=== PATIENT | female | born 1980 | race Caucasian/White ===

== ENCOUNTER 2019-04-10 08:39 | Emergency (ER) | payer MEDICAID, SELFPAY ==
[2019-04-10 08:48] VITALS: BP 117/92; PULSE 81; RESP 18; TEMP 36.7; O2SAT 100
--- NOTE | 2019-04-10 09:10 | W.ED.GENAD ---
Discharge Plan Disposition Patient Disposition: HOME Condition: Fair Discharge Details Chief Complaint: RespSymp Clinical Impression: Acute streptococcal pharyngitis Primary Care Provider: Madelin Beatty V ED Provider: Jewels Atkinson Home Meds and New Rx's Prescriptions: New amoxicillin 500 mg capsule 500 mg PO BID Qty: 20 RF: 0 fluconazole 150 mg tablet 150 mg PO ONCE Qty: 2 RF: 0 Continued sertraline [Zoloft] 100 mg Tablet 100 mg PO DAILY RF: 0 Discharge Instructions Instructions: Pharyngitis (ED) Additional Instructions: Encourage hydration. Tylenol and ibuprofen as needed for discomfort. May use viscous lidocaine as prescribed to help with symptomatic management. Replace your toothbrush as discussed. Please take amoxicillin as prescribed. Even if symptoms improve, please take the entire course If you develop symptoms of yeast infection, please take fluconazole as prescribed home coordinator will reach out to you in regard to follow-up with primary care provider. If you develop inability stay hydrated, increased swelling, shortness of breath, difficulty breathing or other new/worsening symptoms please seek care urgently once again. Stand Alone Forms: Work Release Medical Decision Making Patient is a 38-year-old female presenting today for violation sore throat. She reports that last week she began having symptoms of nasal congestion, sinus pressure and mild cough. States that few days ago sore throat began. Reports that this made worse with eating. States initially she had fevers but these have since resolved. She denies any GI upset. Patient is status post tubal ligation. On exam, findings are suggestive of Streptococcus pharyngitis. However, her history is not consistent with this. Plan to obtain POC strep testing. Rapid strep testing is positive. Discussed these findings with the patient. We discussed her/benefits of treatment and she prefers treatment route. Patient will be placed on amoxicillin. She does report that she frequently gets yeast infections with antibiotics, will also prescribe fluconazole to begin if she has symptoms. We discussed new/worsening symptoms that should prompt urgent evaluation once again. Advise follow-up with primary care as she does not have one I have asked her tire care manager help facilitate this. All of her questions and concerns were addressed and she is in agreement this plan. HPI General Mode of arrival: ambulatory. Date/Time Provider Initiated Documentation: 04/10/19 08:49. Limitations to Documentation: no limitations. Information obtained by: patient, family and RN notes reviewed. History of Present Illness 38 year old F presents to the emergency department with the chief complaint of sore throat, described as moderate, with intensity rated at 5. Quality is described as burning, Patient reports no radiation. Patient started experiencing this day(s) and it has been constant. No relieving factors improve symptom(s), No exacerbating factors reported . Patient notes cough (mild) and fever/chills (reprots fevers a few days ago, since resolved); denies chest pain, diaphoresis, headaches, loss of appetite, nausea/vomiting, rash and shortness of breath. Patient did receive the following treatments prior to arrival, none Related Data Home Medications Medication Instructions Recorded Confirmed amoxicillin 500 mg PO BID #20 cap 04/10/19 fluconazole 150 mg PO ONCE #2 tab 04/10/19 sertraline [Zoloft] 100 mg PO DAILY 04/10/19 04/10/19 Previous Rx's Medication Instructions Recorded amoxicillin 500 mg PO BID #20 cap 04/10/19 fluconazole 150 mg PO ONCE #2 tab 04/10/19 Allergies Allergy/AdvReac Type Severity Reaction Status Date / Time No Known Allergies Allergy Unverified 04/10/19 08:46 General Stated Complaint: RespSymp MARCEL: 4 Review of Systems Constitutional Reports as per HPI, Denies chills, Reports fever(s), Denies headache(s) and Denies poor appetite Eyes Reports as per HPI, Denies eye discharge and Denies irritation ENT Reports as per HPI, Denies ear discharge, Denies otalgia, Denies headache(s), Reports sinus pain, Reports sinus pressure, Reports sore throat, Denies throat swelling and Denies tongue swelling Cardiovascular Reports as per HPI, Denies chest pain, Denies dyspnea and Denies dyspnea on exertion Respiratory Reports as per HPI, Denies hemoptysis, Denies dyspnea and Denies dyspnea on exertion Gastrointestinal Reports as per HPI, Denies abdominal pain, Denies change in bowel habits, Denies nausea and Denies vomiting Integumentary/Breasts Reports as per HPI and Denies rash Neurologic Reports as per HPI and Denies headache(s) Allergic/Immunologic Denies throat swelling and Denies tongue swelling PFS Social History Smoking/Tobacco Use Status: Never Alcohol Intake: current Alcohol Intake frequency: holidays/special occasions only Drug use: Never Substance use type: does not use Do you feel safe at home: Yes Do you feel safe in your relationship?: Yes Exam Const General: cooperative, healthy appearing, comfortable, no acute distress, well developed and well groomed Nutritional Appearance: well nourished and overweight Orientation: alert and awake [facility] Head: normal to inspection, normocephalic and atraumatic Ears: hearing grossly normal bilaterally, external ears normal and TM's normal bilaterally General nose exam: external nose normal and nares normal Face and sinus: normal facial exam, sinuses nontender and face symmetric Mouth: oral mucosae normal, lip normal, tongue normal, oropharynx normal and moist mucous membranes Teeth and gingiva: dentition normal Throat: uvula midline and abnormal tonsil bilaterally erythema, exudates and hypertrophy 2+ Eyes General: appearance normal, both eyes and all related structures Neck Neck: normal visual inspection, full ROM, no lymphadenopathy and no meningeal signs Resp Effort & Inspection: normal respiratory effort, able to speak in complete sentences and no respiratory distress Auscultation: clear to auscultation bilaterally, no rales, no rhonchi and no wheezes Cardio Rate: regular rate Rhythm: regular rhythm Heart Sounds: S1 normal and S2 normal Skin General skin exam: no rashes or lesions noted Neuro General: alert and awake Cognition: normal cognition Speech: speech normal Gait: normal gait Psych Appearance: grossly normal and well kempt Mental Status: mental status grossly normal Speech and Movement: speech and movement normal Course Vital Signs Temperature 36.7 C 04/10/19 08:48 Pulse 81 04/10/19 08:48 Respiratory Rate 18 04/10/19 08:48 Blood Pressure 117/92 H 04/10/19 08:48 Pulse Oximetry 100 04/10/19 08:48 Temperature 36.7 C 04/10/19 08:48 Temperature Source Tympanic 04/10/19 08:48 Pulse 81 04/10/19 08:48 Respiratory Rate 18 04/10/19 08:48 Respiratory Effort Non-Labored 04/10/19 09:00 Respiratory Depth Normal 04/10/19 08:54 Blood Pressure 117/92 H 04/10/19 08:48 Blood Pressure Position Sitting 04/10/19 08:48 Pulse Oximetry 100 04/10/19 08:48 Oxygen Delivery Method Room Air 04/10/19 08:48 Oxygen Flow Rate 0 04/10/19 08:48 Pain Level 5 04/10/19 08:48 Lab/Test Results Lab/Test Results: POC Strep Test-ZACHARIAH(Rapid) Start: 04/10/19 08:58 Freq: .Rapid Strep Test Status: Active Protocol: Document 04/10/19 09:03 SGL (Rec: 04/10/19 09:03 [facility] [place] [id number]) Strep test-ZACHARIAH(Rapid)-POC POC-Strep test-ZACHARIAH (Rapid) Positive POC-Strep test-ZACHARIAH (Rapid) Positive
--- NOTE | 2019-04-10 09:20 | ED.GENADUL_ITS ---
Discharge Plan Disposition Patient Disposition: HOME Condition: Fair Discharge Details Chief Complaint: RespSymp Clinical Impression: Acute streptococcal pharyngitis Primary Care Provider: Madelin Beatty V ED Provider: Jewels Atkinson Home Meds and New Rx's Prescriptions: New amoxicillin 500 mg capsule 500 mg PO BID Qty: 20 RF: 0 fluconazole 150 mg tablet 150 mg PO ONCE Qty: 2 RF: 0 Continued sertraline [Zoloft] 100 mg Tablet 100 mg PO DAILY RF: 0 Discharge Instructions Instructions: Pharyngitis (ED) Additional Instructions: Encourage hydration. Tylenol and ibuprofen as needed for discomfort. May use viscous lidocaine as prescribed to help with symptomatic management. Replace your toothbrush as discussed. Please take amoxicillin as prescribed. Even if symptoms improve, please take the entire course If you develop symptoms of yeast infection, please take fluconazole as prescribed plan coordinator will reach out to you in regard to follow-up with primary care provider. If you develop inability stay hydrated, increased swelling, shortness of breath, difficulty breathing or other new/worsening symptoms please seek care urgently once again. Stand Alone Forms: Work Release Medical Decision Making Patient is a 38-year-old female presenting today for violation sore throat. She reports that last week she began having symptoms of nasal congestion, sinus pressure and mild cough. States that few days ago sore throat began. Reports that this made worse with eating. States initially she had fevers but these have since resolved. She denies any GI upset. Patient is status post tubal ligation. On exam, findings are suggestive of Streptococcus pharyngitis. However, her history is not consistent with this. Plan to obtain POC strep testing. Rapid strep testing is positive. Discussed these findings with the patient. We discussed her/benefits of treatment and she prefers treatment route. Patient will be placed on amoxicillin. She does report that she frequently gets yeast infections with antibiotics, will also prescribe fluconazole to begin if she has symptoms. We discussed new/worsening symptoms that should prompt urgent evaluation once again. Advise follow-up with primary care as she does not have one I have asked her care process manager help facilitate this. All of her questions and concerns were addressed and she is in agreement this plan. HPI General Mode of arrival: ambulatory . Date/Time Provider Initiated Documentation: 04/10/19 08:49 . Limitations to Documentation: no limitations . Information obtained by: patient, family and RN notes reviewed . History of Present Illness 38 year old F presents to the emergency department with the chief complaint of sore throat, described as moderate, with intensity rated at 5. Quality is described as burning, Patient reports no radiation. Patient started experiencing this day(s) and it has been constant. No relieving factors improve symptom(s), No exacerbating factors reported . Patient notes cough (mild) and fever/chills (reprots fevers a few days ago, since resolved); denies chest pain, diaphoresis, headaches, loss of appetite, nausea/vomiting, rash and shortness of breath. Patient did receive the following treatments prior to arrival, none Related Data Home Medications Medication Instructions Recorded Confirmed amoxicillin 500 mg PO BID #20 cap 04/10/19 fluconazole 150 mg PO ONCE #2 tab 04/10/19 sertraline [Zoloft] 100 mg PO DAILY 04/10/19 04/10/19 Previous Rx's Medication Instructions Recorded amoxicillin 500 mg PO BID #20 cap 04/10/19 fluconazole 150 mg PO ONCE #2 tab 04/10/19 Allergies Allergy/AdvReac Type Severity Reaction Status Date / Time No Known Allergies Allergy Unverified 04/10/19 08:46 General Stated Complaint: RespSymp MARCEL: 4 Review of Systems Constitutional Reports as per HPI, Denies chills, Reports fever(s), Denies headache(s) and Denies poor appetite Eyes Reports as per HPI, Denies eye discharge and Denies irritation ENT Reports as per HPI, Denies ear discharge, Denies otalgia, Denies headache(s), Reports sinus pain, Reports sinus pressure, Reports sore throat, Denies throat swelling and Denies tongue swelling Cardiovascular Reports as per HPI, Denies chest pain, Denies dyspnea and Denies dyspnea on exertion Respiratory Reports as per HPI, Denies hemoptysis, Denies dyspnea and Denies dyspnea on exertion Gastrointestinal Reports as per HPI, Denies abdominal pain, Denies change in bowel habits, Denies nausea and Denies vomiting Integumentary/Breasts Reports as per HPI and Denies rash Neurologic Reports as per HPI and Denies headache(s) Allergic/Immunologic Denies throat swelling and Denies tongue swelling PFS Social History Smoking/Tobacco Use Status: Never Alcohol Intake: current Alcohol Intake frequency: holidays/special occasions only Drug use: Never Substance use type: does not use Do you feel safe at home: Yes Do you feel safe in your relationship?: Yes Exam Const General: cooperative, healthy appearing, comfortable, no acute distress, well developed and well groomed Nutritional Appearance: well nourished and overweight Orientation: alert and awake [facility] Head: normal to inspection, normocephalic and atraumatic Ears: hearing grossly normal bilaterally, external ears normal and TM's normal bilaterally General nose exam: external nose normal and nares normal Face and sinus: normal facial exam, sinuses nontender and face symmetric Mouth: oral mucosae normal, lip normal, tongue normal, oropharynx normal and moist mucous membranes Teeth and gingiva: dentition normal Throat: uvula midline and abnormal tonsil bilaterally erythema, exudates and hypertrophy 2+ Eyes General: appearance normal, both eyes and all related structures Neck Neck: normal visual inspection, full ROM, no lymphadenopathy and no meningeal signs Resp Effort & Inspection: normal respiratory effort, able to speak in complete sentences and no respiratory distress Auscultation: clear to auscultation bilaterally, no rales, no rhonchi and no wheezes Cardio Rate: regular rate Rhythm: regular rhythm Heart Sounds: S1 normal and S2 normal Skin General skin exam: no rashes or lesions noted Neuro General: alert and awake Cognition: normal cognition Speech: speech normal Gait: normal gait Psych Appearance: grossly normal and well kempt Mental Status: mental status grossly normal Speech and Movement: speech and movement normal Course Vital Signs Temperature 36.7 C 04/10/19 08:48 Pulse 81 04/10/19 08:48 Respiratory Rate 18 04/10/19 08:48 Blood Pressure 117/92 H 04/10/19 08:48 Pulse Oximetry 100 04/10/19 08:48 Temperature 36.7 C 04/10/19 08:48 Temperature Source Tympanic 04/10/19 08:48 Pulse 81 04/10/19 08:48 Respiratory Rate 18 04/10/19 08:48 Respiratory Effort Non-Labored 04/10/19 09:00 Respiratory Depth Normal 04/10/19 08:54 Blood Pressure 117/92 H 04/10/19 08:48 Blood Pressure Position Sitting 04/10/19 08:48 Pulse Oximetry 100 04/10/19 08:48 Oxygen Delivery Method Room Air 04/10/19 08:48 Oxygen Flow Rate 0 04/10/19 08:48 Pain Level 5 04/10/19 08:48 Lab/Test Results Lab/Test Results: POC Strep Test-ZACHARIAH(Rapid) Start: 04/10/19 08:58 Freq: .Rapid Strep Test Status: Active Protocol: Document 04/10/19 09:03 SGL (Rec: 04/10/19 09:03 [facility] [id number]) Strep test-ZACHARIAH(Rapid)-POC POC-Strep test-ZACHARIAH (Rapid) Positive POC-Strep test-ZACHARIAH (Rapid) Positive
[2019-04-10 09:29] VITALS: BP 117/92; PULSE 81; RESP 18; TEMP 36.7; O2SAT 100
--- NOTE | 2019-04-10 14:01 | NUR.NOTE ---
Nursing Note: Referral faxed to [facility] for follow up. Russell Barcenas is engineer/conductor for telephone call. Janette Vásquez.
== END 2019-04-10 09:21 | disposition home or self-care (01) ==
LOC: ER 09:27
PROVIDERS: Emergency Provider Physician Assistant; PCP Family Medicine
DX: J02.0 Streptococcal pharyngitis (principal)
CPT/HCPCS: 87880; 99283

== ENCOUNTER 2019-05-21 14:28 | Outpatient (REF) | payer MEDICAID, SELFPAY ==
[2019-05-21 21:12] LABS: Abs Immature Grans 0.01 k/cumm (0.0-0.09); Absolute Basophil Count 0.05 k/cumm (0.0-0.2); Absolute Eosinophil Count 0.21 k/cumm (0.0-0.7); Absolute Lymphocyte Count 2.41 k/cumm (1.2-3.4); Absolute Monocyte Count 0.52 k/cumm (0.11-0.7); Absolute Neutrophil Count 4.78 k/cumm (1.2-6.7); Basophils % 0.6; Eosinophils % 2.6; Immature Grans % 0.1; Lymphocytes % 30.2; Mean Corp. HGB Concentration 32.4 g/dL (32.0-36.0); Mean Corpuscular Hemoglobin 27.9 pg (27.0-33.0); Mean Platelet Volume 11.9 fL (8.0-11.0); Monocytes % 6.5; Platelet Count 275 x1000/uL (130-400); RBC Distribution Width 13.3 % (11.7-14.6); White Blood Cell Count 7.98 k/cumm (4.4-10.8)
[2019-05-21 21:32] LABS: Hemoglobin A1C 6.2 % (4.5-6.2)
[2019-05-21 21:49] LABS: TSH 2.45 uIU/mL (0.36-3.74)
[2019-05-21 23:03] LABS: Vitamin D 25 Total 29.3 ng/ml (30-100)
== END 2019-05-21 14:48 ==
LOC: NCHCN 14:28
PROVIDERS: PCP Family Medicine; Visit Provider Nurse Practitioner Family
DX: R53.83 Other fatigue (principal); R51 Headache; F41.9 Anxiety disorder, unspecified; F43.23 Adjustment disorder with mixed anxiety and depressed mood; Z13.1 Encounter for screening for diabetes mellitus
CPT/HCPCS: 82306; 83036; 84443; 85025

== ENCOUNTER 2019-07-26 12:52 | Outpatient (REF) | payer MEDICAID, SELFPAY ==
[2019-07-30 14:08] LABS: Chlamydia Result Negative; GC Result Negative; Specimen Description URINE
== END 2019-07-26 13:12 ==
LOC: NCHCN 12:52
PROVIDERS: PCP Family Medicine; Visit Provider Nurse Practitioner
DX: Z11.3 Encounter for screening for infections with a predominantly sexual mode of transmission (principal)
CPT/HCPCS: 87491; 87591

== ENCOUNTER 2020-07-07 10:40 | Emergency (ER) | payer MEDICAID, SELFPAY ==
[2020-07-07 10:44] VITALS: BP 130/90; PULSE 90; RESP 16; TEMP 36; O2SAT 98
--- NOTE | 2020-07-07 11:49 | ED.GENADUL_ITS ---
Discharge Plan Disposition Patient Disposition: HOME Condition: Stable Discharge Details Chief Complaint: Orthopedic Clinical Impression: Sprain of left knee Primary Care Provider: Madelin Beatty V ED Provider: Rere Griffith Home Meds and New Rx's Prescriptions: No Action sertraline [Zoloft] 100 mg Tablet 100 mg PO DAILY RF: 0 amoxicillin 500 mg capsule 500 mg PO BID Qty: 20 RF: 0 fluconazole 150 mg tablet 150 mg PO ONCE Qty: 2 RF: 0 Discharge Instructions Instructions: Knee Sprain (ED) Additional Instructions: Follow up with primary care provider in 3-5 days. Return to ED sooner if any worsening or concerns. Increase oral fluids. Please take Tylenol or Ibuprofen with food every 4-6 hours as needed for pain and swelling. Rest, ice, compression, elevation. Wear knee immobilizer and use crutches for comfort weightbearing as tolerated. Follow-up with Ortho in 1 to 2 weeks as needed. Stand Alone Forms: Work Release Referrals: Madelin Beatty MD [Primary Care Provider] - Bro Peña MD [ [facility] STAFF PHYSICIAN] - Discharge Data Discharge Date/Time-TO BE ENTERED AT DEPARTURE: 07/07/20 14:11 Medical Decision Making 39-year-old obese female presents to the ER with left knee tenderness x2 days. She states that increased pain with weightbearing, feels as if her knee is going to hyperextend. She does note some popping. She did take 400 mg of ibuprofen prior to arrival. This is somewhat helped her pain. She has no obvious deformity, erythema, or swelling. Imaging protocol: XR Left knee. Views: 3 views. COMPARISON: No relevant prior studies available. FINDINGS: Bones/joints: Minor joint effusion. No fractures. No focal bone lesions. No arthritic degeneration. Articular surfaces are smooth. No erosions. Soft tissues: No soft tissue swelling. IMPRESSION: Minor joint effusion. Bones and soft tissues are otherwise unremarkable. Joint spaces preserved. Thank you for allowing us to participate in the care of your patient. Dictated and Authenticated by: Stanislaw Dong MD Patient given knee immobilizer and crutches instructed to follow-up with Ortho in 1 to 2 weeks if continued pain. Instructed on rest, ice, compression, elevation. Verbalizes understanding. HPI General Mode of arrival: ambulatory . Date/Time Provider Initiated Documentation: 07/07/20 10:51 . Limitations to Documentation: no limitations . Information obtained by: patient . HPI Narrative: 39-year-old obese female presents to the ER with left knee tenderness x2 days. She states that increased pain with weightbearing, feels as if her knee is going to hyperextend. She does note some popping. She did take 400 mg of ibuprofen prior to arrival. This is somewhat helped her pain. She has no obvious deformity, erythema, or swelling. Related Data Home Medications Medication Instructions Recorded Confirmed amoxicillin 500 mg PO BID #20 cap 04/10/19 fluconazole 150 mg PO ONCE #2 tab 04/10/19 sertraline [Zoloft] 100 mg PO DAILY 04/10/19 04/10/19 Previous Rx's Medication Instructions Recorded amoxicillin 500 mg PO BID #20 cap 04/10/19 fluconazole 150 mg PO ONCE #2 tab 04/10/19 Allergies Allergy/AdvReac Type Severity Reaction Status Date / Time No Known Allergies Allergy Unverified 04/10/19 08:46 General Stated Complaint: Orthopedic MARCEL: 3 Review of Systems Narrative: Constitutional: Negative for weight loss, alert and oriented, well groomed, normal body habitus, appears comfortable. HEENT: Denies trauma, headaches, blurry vision, nasal discharge, sore throat, trouble swallowing. Chest: Denies chest pain, palpitations, irregular rhythm, hypertension. Respiratory: Denies Shortness of breath, cough, hemoptysis. GI: Denies abdominal pain, nausea, vomiting, diarrhea, constipation. : Denies dysuria, hematuria, flank pain, rectal bleeding. Neuro: Denies dizziness, blurry vision, weakness, syncope, headache or facial numbness. Hematologic: Denies easy bruising, intolerance to heat or cold, hair loss. Musculoskeletal Musculoskeletal: Reports arthralgias (Left knee) [facility] Social History Smoking/Tobacco Use Status: Never Alcohol Intake: current Alcohol Intake frequency: holidays/special occasions only Drug use: Never Substance use type: does not use Do you feel safe at home: Yes Do you feel safe in your relationship?: Yes Exam Narrative Exam Narrative: Constitutional: Alert and oriented x3. Appears stated age. Normal body habitus. Head: Normocephalic, no trauma. Eyes: Pupils PERRLA, Red reflex noted, EOM's intact. Eyelids symmetrical without lesions, discharge, or swelling. ENT: Bilateral TM's WNL, External ear normal to inspection, no mastoid TTP, swelling, or erythema, Nasal turbinates WNL, no nasal discharge. Normal dentition, Posterior pharynx WNL, no exudate. Chest: RRR, Normal S1, S2, distal pulses intact. Resp: Lungs clear to auscultation bilaterally, no wheezes, rales, or rhonchi. Musculoskeletal: Normal gait, 5/5 strength to all four extremities. Left knee tenderness medial joint tenderness with palpation. No obvious swelling, deformity or erythema. Skin: No suspicious rashes or lesions. Capillary refill less than 2 sec. Neurologic: Cranial nerves II-XII intact. Alert and oriented x 3. DTR's intact. Hematologic/Lymphatic: No ecchymosis, no lymphadenopathy. Course Vital Signs Vital signs: Vital Signs Temperature 36.0 C L 07/07/20 10:44 Pulse 90 07/07/20 10:44 Respiratory Rate 16 07/07/20 10:44 Blood Pressure 130/90 07/07/20 10:44 Pulse Oximetry 98 07/07/20 10:44 Temperature 36.0 C L 07/07/20 10:44 Pulse 90 07/07/20 10:44 Respiratory Rate 16 07/07/20 10:44 Respiratory Effort 07/07/20 10:48 Blood Pressure 130/90 07/07/20 10:44 Blood Pressure Position Sitting 07/07/20 10:44 Pulse Oximetry 98 07/07/20 10:44 Oxygen Delivery Method Room Air 07/07/20 10:44 Oxygen Flow Rate 0 07/07/20 10:44 Pain Level 5 07/07/20 10:44
--- NOTE | 2020-07-07 12:49 | DI.RAD_ITS ---
EXAM: XR KNEE LT 3V AP,LAT,MAINE CLINICAL HISTORY: Left knee pain heard a popping. TECHNIQUE: 2D digital imaging was performed. COMPARISON: No exams were available for comparison FINDINGS: BONES: No acute fracture is present. No bony destructive lesion is seen. JOINTS: The knee is normally aligned. No joint effusion is seen. SOFT TISSUE: Normal. IMPRESSION: Normal radiographs of the left knee. DATA REPOSITORY: RADIATION DOSE DELIVERED:
--- NOTE | 2020-07-07 13:21 | DI.VRAD_ITS ---
PROCEDURE INFORMATION: Exam: XR Left Knee Exam date and time: 07/07/2020 12:43 PM Age: 39 years old Clinical indication: Pain; Knee; Left TECHNIQUE: Imaging protocol: XR Left knee. Views: 3 views. COMPARISON: No relevant prior studies available. FINDINGS: Bones/joints: Minor joint effusion. No fractures. No focal bone lesions. No arthritic degeneration. Articular surfaces are smooth. No erosions. Soft tissues: No soft tissue swelling. IMPRESSION: Minor joint effusion. Bones and soft tissues are otherwise unremarkable. Joint spaces preserved. Dictated and Authenticated by: Stanislaw Dong MD. Ordering:FRANK Jernigan MD
== END 2020-07-07 14:11 | disposition home or self-care (01) ==
PROVIDERS: Emergency Provider Registered Nurse Emergency; PCP Family Medicine
DX: S83.92XA Sprain of unspecified site of left knee, initial encounter (principal); X58.XXXA Exposure to other specified factors, initial encounter
CPT/HCPCS: 29505; 73562; 81025; 99283; 99282; E0114; L1830

== ENCOUNTER 2020-11-10 14:43 | Outpatient (REF) | payer MEDICAID, SELFPAY ==
[2020-11-10 13:56] LABS: Hemoglobin A1C 6.2 % (<5.7)
[2020-11-10 13:57] LABS: BUN 14 mg/dL (7-18); CREATININE 0.75 mg/dL (0.55-1.02); Calcium 8.8 mg/dL (8.5-10.1); Calculated LDL 133 mg/dL (<100); Chloride 103 mmol/L (98-107); Cholesterol 201 mg/dL (<200); Glucose 116 mg/dL (74-106); HDL Cholesterol 51 mg/dL (40-60); Potassium 4.5 mmol/L (3.5-5.1); Sodium 136 mmol/L (136-145); Triglyceride 88 mg/dL (<150)
== END 2020-11-10 15:03 ==
LOC: NCHCN 14:43
PROVIDERS: PCP Family Medicine; Visit Provider Nurse Practitioner
DX: R73.03 Prediabetes (principal); Z68.43 Body mass index [BMI] 50.0-59.9, adult
CPT/HCPCS: 80048; 80061; 83036

== ENCOUNTER 2022-04-20 06:06 | Day surgery (SDC) | payer MEDICAID, SELFPAY ==
[2022-04-20 06:45] VITALS: BP 124/73; PULSE 84; RESP 18; TEMP 36.4; O2SAT 98
--- NOTE | 2022-04-20 06:56 | W.ANESPRE ---
General Info Date of Service Date Performed: 04/20/22 Height: 5 ft 3 in Weight: 140.7 kg Body Mass Index (BMI): 54.9 Surgical Procedure: Operation Date: 04/20/22 07:40 Proposed Procedure Side Surgeon p Wrist ECTR Right Bro Peña MD Meds Allergies and Home Medications Allergies Allergy/AdvReac Type Severity Reaction Status Date / Time azithromycin Allergy Intermediate Hives Verified 04/20/22 06:39 Home Medication Medication Instructions Recorded sertraline 100 mg tablet (Zoloft) 100 mg PO DAILY 04/10/19 cholecalciferol (vitamin D3) 25 25 mcg PO DAILY 11/25/21 mcg (1,000 unit) capsule lansoprazole 30 mg capsule,delayed 30 mg PO DAILY 11/25/21 release (Prevacid) naproxen 500 mg tablet 500 mg PO BID PRN 11/25/21 ibuprofen 200 mg tablet 400 mg PO Q6H PRN 04/20/22 dyicdpmalpod-Rq-twkq-minerals 18 1 tab PO 04/20/22 mg-0.4 mg tablet Current Visit Medications: Current Medications Generic Name Dose Route Start Last Admin Trade Name Freq PRN Reason Stop Dose Admin Ringer's Solution 1,000 mls @ 80 mls/hr 04/20/22 06:00 IV 05/19/22 23:59 INFUSION CD Cefazolin Sodium 3,000 mg/ 100 mls @ 200 mls/hr 04/20/22 06:00 Sodium Chloride IVPB 04/20/22 16:00 PREOP DC IV Miscellaneous Supplies 1 each 04/20/22 06:00 Iv Access IV 05/19/22 23:59 DIRECTED DC Sodium Chloride 0 ml 04/20/22 06:00 Normal Saline Flush 10 Ml Syr IV 05/19/22 23:59 PRN PRN Sodium Chloride 0 ml 04/20/22 06:00 Normal Saline 10 Ml Vial IJ 05/19/22 23:59 DIRECTED PRN Sterile Water 0 ml 04/20/22 06:00 Water,Injection,Sterile 10 Ml Vial IJ 05/19/22 23:59 DIRECTED PRN PFSH Active Problems Active Problems: Problem Status Onset Code No-show for appointment Z53.29 GERD (gastroesophageal reflux disease) K21.9 Carpal tunnel syndrome G56.00 Pre-diabetes R73.03 Headache R51.9 Adjustment disorder with mixed anxiety and depressed mood F43.23 Right carpal tunnel syndrome G56.01 Medical History Medical History (Updated 04/20/22 @ 06:45 by Carolynn Angel) History of anxiety History of prediabetes Hx of gastroesophageal reflux (GERD) Surgical History Surgical History (Updated 04/20/22 @ 06:43 by Carolynn Angel) History of section x 3 History of cholecystectomy Tobacco Smoking/Tobacco Use Status: Never Alcohol Alcohol Intake: current Alcohol intake frequency: holidays/special occasions only Substance Use Substance use: Never Substance use type: does not use Vital Signs and Lab Results Vital Signs Most Recent Vital Signs in EMR: Most Recent Vital Signs Temp Pulse Resp BP Pulse Ox 36.4 C L 84 18 124/73 98 04/20/22 06:45 04/20/22 06:45 04/20/22 06:45 04/20/22 06:45 04/20/22 06:45 Lab Results Blood Type / Crossmatch: No Data to Display Complete Blood Count: No Data to Display Complete Metabolic Panel: No Data to Display Liver Function Panel: No Data to Display Coagulation Panel: No Data to Display Cardiac Panel: No Data to Display Arterial Blood Gas: No Data to Display Venous Blood Gas: No Data to Display Pancreas Panel: No Data to Display Thyroid Panel: No Data to Display Infectious Disease: No Data to Display Blood Cultures: No Data to Display Toxicology Panel: No Data to Display Panel: No Data to Display Anesthesia Assessment and Plan Anesthesia History Personal History: No History of Anesthesia Complications Family History: No Family History of Anesthesia Complications Exercise Tolerance Exercise Tolerance: Metabolic Equivalents>4 Pertinent Negatives Pertinent Negatives: No Major Cardiovascular Symptoms or Complaints and No Major Pulmonary Symptoms or Complaints Cardiac & Pulmonary Exam Cardiac Exam: Normal S1/S2 Heart Sounds Pulmonary Exam: Clear Bilateral Breath Sounds Implantable Cardiac Device Does patient have a Pacemaker or an ICD?: No Airway Exam Known Difficult Airway: No Mallampati Class: 2 Mouth Opening: Normal (> 3cm) Thyromental Distance: Greater than 3 cm Neck Range of Motion: Full ROM Neck Circumference: Normal Teeth Condition: Normal Dentition ASA Classification ASA Score: ASA 3 Emergency Case?: No NPO Status NPO Status: NPO Clears >2 hours, Solids >8 hours Status Status: Negative HCG Anesthesia Plan Resuscitation Status: Full Code Anesthesia Technique: General Anesthesia Airway Planned: Natural Airway Monitors Used: Standard Monitors
[2022-04-20 07:00] VITALS: BMI 54.9
[2022-04-20] MEDS: Lactated Ringers 1,000 ML 80 ML IV (07:05)
--- NOTE | 2022-04-20 07:24 | W.PM.DSUDISC ---
Discharge Plan Disposition Patient Disposition: HOME Condition: Good Discharge Details Reason For Visit: Right CarpalTunnel Syndrome Attending Provider: Bro Peña Primary Care Provider: Michelle Steele Home Meds and New Rx's Prescriptions: New acetaminophen 500 mg tablet 500 mg PO Q6H PRN PRN (Reason: pain) Qty: 40 3RF ibuprofen 600 mg tablet 600 mg PO TID PRN (Reason: pain) Qty: 30 3RF hydrocodone-acetaminophen 5-325 mg tablet 1 tab PO Q6H PRN (Reason: pain) Qty: 4 0RF Continued lansoprazole [Prevacid] 30 mg capsule,delayed release(DR/EC) 30 mg PO DAILY cholecalciferol (vitamin D3) 25 mcg (1,000 unit) capsule 25 mcg PO DAILY fpkwxsguvrdo-Ag-awim-minerals 18-0.4 mg Tablet 1 tab PO Label Comments: pt. reports taking multiple vitamin, unsure of brand sertraline [Zoloft] 100 mg Tablet 100 mg PO DAILY Discontinued naproxen 500 mg tablet 500 mg PO BID PRN ibuprofen 200 mg Tablet 400 mg PO Q6H PRN Discharge Instructions Stand Alone Forms: Casey Santamaria Tunnel Release Referrals: Bro Peña MD [ [facility] STAFF PHYSICIAN] - Activity:: Activity as Tolerated Remove Dressings/Wound Care:: 48 hours Shower/Bathe:: 48 hours Diet:: As Tolerated Discharge Orders Discharge Orders: Discharge Order (Routine); Ordered 04/20/22 Ordered By: Bro Peña
[2022-04-20] MEDS: ceFAZolin 3,000 MG in Normal Saline 100 ML 200 MG IVPB (07:28)
[2022-04-20] MEDS: Sodium Bicarbonate 50 MEQ/50 ML VIAL (07:38)
[2022-04-20] MEDS: Lidocaine 1% Multi-Dose W/EPI 1/100,000 50 ML VIAL (07:38)
--- NOTE | 2022-04-20 07:49 | ROE_ITS ---
Date of service: 04/20/22 Time of Service: 07:49 Operative Note Operative Note PRE-OP DIAGNOSIS: Right Carpal Tunnel Syndrome POST-OP DIAGNOSIS: same PROCEDURE: Right Endoscopic Carpal Tunnel Release SURGEON: Bro Peña ANESTHESIA TYPE: General:No Airway Refer to Anesthesia Record ESTIMATED BLOOD LOSS: 0 PATHOLOGY: none sent TOURNIQUET TIME: 5 COMPLICATIONS: None Patient was transported to: same day Patient's condition: stable Indications: I have seen Karlie in clinic for symptoms of carpal tunnel syndrome. The numbness, tingling, and pain limited function. Clinical exam findings with nerve conduction tests confirmed the diagnosis of carpal tunnel syndrome. Nonoperative measures such as bracing, time, activity modifications had been tried but disability and pain persisted. I discussed carpal tunnel release with the patient. I reviewed the risks of the procedure to include, but not limited to, bleeding, infection, pain, stiffness, incomplete release, damage to nerves or vessels, persistent numbness, recurrence. Despite these risks, the patient elected to proceed. Findings: There was tightened carpal tunnel. This was dilated and released successfully with the endoscopic with increased space within the tunnel. The antebrachial fascia was released proximally freeing the median nerve at the wrist. Procedure Description: Karlie was greeted in the preoperative holding area where the correct side was identified and marked. The consent was reviewed with the patient and signed. The history and physical was updated. All questions were answered. She was taken back to the operating room. The patient was placed into the supine position on the operating room table with the right arm on an arm board. A nonsterile tourniquet was placed high onto the arm. All bony prominences were well padded. Prophylactic antibiotics in the form of Cefazolin were administered. The right arm was then prepped with Chloraprep and draped in a standard fashion with stockinette and extremity drape. A timeout to confirm correct identity, side and site, procedure, allergies, anesthesia, and medical concerns was performed. The surgical site was marked in the volar wrist creases in line with the radial border of the fourth ray. This area was anesthetized with approximately 6cc of 1% Lidocaine. The limb was then exsanguinated with an Esmarch. The skin was incised with a 15 blade, approximately 1cm. The skin only was cut and the deeper tissue was dissected bluntly with a tenotomy scissor, avoiding passing nerve and venous structures. The fascia was penetrated and opened bluntly. A two-prong skin hook was placed under this proximal fascial edge. A series of hamate finders were used to identify and dilate the carpal tunnel. Synovial elevator was used to free synovial attachments to the underside of the trans verse carpal ligament. My thumb was kept in the palm to august the distal extent of the carpal tunnel and correctly position the hand. The Microaire endoscope was inserted without difficulty and without resistance. Excellent visualization showed horizontally running fibers of the transverse carpal ligament (TCL). The distal extent of the TCL was visualized and the end of the scope palpated with the thumb. The blade was elevated and withdrawn from distal to proximal. The TCL was split into two flaps. The endoscope was reinserted to confirm complete release and any remnant ligament was incised. The scope was withdrawn and the proximal aspect of the carpal tunnel was grossly inspected and appeared release with the median nerve visible. The antebrachial fascia at the level of the wrist was then freed from the overlying skin and then the underlying median nerve with blunt dissection. This was transected longitudinally for about 3cm proximal to the wrist incision. The wound was then irrigated with easy flow of irrigant distally and proximally. The incision was closed with a single 4-0 Nylon suture. The wound was dressed with Xeroform, Gauze, Kerlix and Gerald. The tourniquet was deflated with the initial dressing and held with some pressure. Blood flow returned easily to all digits with capillary refill less than 2 seconds. The patient tolerated the procedure well and was returned to the Same Day Surgery area in a stable condition suffering no known complication.
[2022-04-20 08:01] VITALS: BP 130/77; PULSE 72; RESP 16; TEMP 36; O2SAT 97
[2022-04-20 08:24] VITALS: BP 134/88; PULSE 61; RESP 18; TEMP 36.3; O2SAT 98
--- NOTE | 2022-04-20 08:34 | ANES.POST_ITS ---
Postoperative Evaluation Date, Time and Location Date Performed: 04/20/22 Time Performed: 08:34 Patient Location: Day Surgery Unit Vital Signs Most Recent Imported Vital Signs: Most Recent Vital Signs Temp Pulse Resp BP Pulse Ox 36.3 C L 61 18 134/88 98 04/20/22 08:24 04/20/22 08:24 04/20/22 08:24 04/20/22 08:24 04/20/22 08:24 Pain Score Most Recent Pain Score: Most Recent Pain Score Pain Level 0 04/20/22 08:24 Assessment Mental Status: Awake (Alert & Oriented to Patient Baseline) Airway and Respiratory Function: Patent airway with normal (patient baseline) respiratory exam Cardiovascular Function: Hemodynamically Stable Hydration Status: Adequately Hydrated Nausea & Vomiting: No Nausea or Vomiting Pain: Pt. Denies Any Pain Peripheral Nerve Block: Patient did not receive a nerve block Teaching Patient Teaching: Advised to seek followup for the following concerns (See e xplanation) Concerns: Other (CHIDI)
== END 2022-04-20 09:02 | disposition home or self-care (01) ==
PROVIDERS: PCP Nurse Practitioner; Visit Provider Student in an Organized Health Care Education/Training Program
PROC: 01N54ZZ Release Median Nerve, Percutaneous Endoscopic Approach (ICD-10-PCS; CPT 29848; principal; 2022-04-20 07:30)
DX: G56.01 Carpal tunnel syndrome, right upper limb (principal); R73.03 Prediabetes; K21.9 Gastro-esophageal reflux disease without esophagitis
CPT/HCPCS: 29848; 81025; J0690; J2250; J2704; J3010

== ENCOUNTER 2022-10-12 07:41 | Day surgery (SDC) | payer MEDICAID, SELFPAY ==
--- NOTE | 2022-10-11 19:21 | W.PM.DSUDISC ---
Date of service: 10/12/22 Time of Service: 09:40 Discharge Plan Disposition Patient Disposition: Home Condition: Good Discharge Details Reason For Visit: EGD Attending Provider: Jose D Carbajal Primary Care Provider: BEAU FELIPE Home Meds and New Rx's Prescriptions: New sucralfate [Carafate] 1 gram tablet 1 g PO QAC Qty: 30 3RF Rx Instructions: take one tablet by mouth every morning Continued Trulicity 3 mg/0.5 mL pen injector 3 mg subcut QWEEK lansoprazole [Prevacid] 30 mg capsule,delayed release(DR/EC) 30 mg PO DAILY cholecalciferol (vitamin D3) 25 mcg (1,000 unit) capsule 25 mcg PO DAILY hbjrtyalncls-Ht-yrsw-minerals 18-0.4 mg Tablet 1 tab PO Label Comments: pt. reports taking multiple vitamin, unsure of brand sertraline [Zoloft] 100 mg Tablet 100 mg PO DAILY Discharge Instructions Instructions: GERD (Gastroesophageal Reflux Disease) (DC), Hall Esophagus (GEN) Additional Instructions: 1. If tolerated, consume a soft, low fiber diet for 1-2 days. 2[address] Do not drive, drink alcohol, operate machinery, make critical decisions, or do activities that require coordination or balance for 24 hours. 3. You may experience a sore throat for 24 to 48 hours. You may use throat lozenges or gargle with warm salt water to relieve the discomfort. 4. Because air was put into your stomach during the procedure, you may experience some belching. 5. Go directly to the emergency room if you notice any of the following: Develop chills (warm to touch), or if you have a thermometer and your temperature is above 101 Difficulty breathing or difficultly swallowing Persistent vomiting Severe abdominal pain, other than gas cramps Severe chest pain Black, tarry stools Any bleeding ? exceeding one tablespoon 6. Call your physician if the site where your intravenous was started becomes red, swollen, painful, and warm to touch. 7. Your physician has reviewed your pre-procedure medications. Please continue to take those medications as previously ordered. You will be given specific information/education regarding any changes to your medications before leaving. Activity:: Activity as Tolerated Diet:: As Tolerated Discharge Orders Discharge Orders: Discharge Order (Routine); Ordered 10/11/22 Ordered By: Jose D Carbajal DS: Diagnosis Discharge Diagnosis (1) GERD (gastroesophageal reflux disease): Status: Chronic Asessment and Plan: Continue to take the lansoprazole Add sucralfate. Take 1 tablet by mouth every morning I will contact you with results of the biopsies.
--- NOTE | 2022-10-11 19:23 | ENDO_ITS ---
Date of service: 10/12/22 Time of Service: Endoscopy Report DATE OF PROCEDURE: 10/12/22 PRE-OP DIAGNOSIS: Dysphagia POST-OP DIAGNOSIS: other (Bile reflux gastritis with Hall's esophagus) PROCEDURE: EGD SURGEON: Jose D Carbajal ANESTHESIA TYPE: General:No Airway ESTIMATED BLOOD LOSS: 20 PATHOLOGY: other (Duodenum, gastric antrum and body, GE junction) COMPLICATIONS: None DISPOSITION: same day INDICATIONS: Alexa is a 42-year-old woman with longstanding dyspepsia despite escalation to proton pump inhibitor therapy. PROCEDURE START TIME: PROCEDURE END TIME: FINDINGS: Small hiatal hernia, Hall's esophagus, bile reflux PROCEDURE DESCRIPTION: After the initiation of monitored anesthetic care, and with the assistance of a bite block, I advanced a standard gastroscope through the mouth past the hypopharynx and into the esophagus.? Under the direct vision of the scope, I advanced down the esophagus into the stomach.? While traversing the GE junction, it was evident that there was some Hall's esophagus. Once I entered the stomach, I performed a brief inspection, followed by retroflexion towards the gastric cardia.? This appeared normal.? After that, I gently advanced the scope around the incisura angularis and examined the pylorus.? This also appeared normal.? Next, I advanced the scope through the pylorus into the duodenum.? The mucosa was pink and healthy appearing.? There were no abnormalities.? I was able to visualize bile draining into the duodenum through the ampulla Vater. ?I performed random biopsies of the duodenum. Next, I began retracting the endoscope.? Retroflexion demonstrated a small hiatal hernia. I then began biop sying the stomach. I performed random biopsies of the antrum. During this process, there was some mild reflux of bile from the duodenum and stomach. Next, I performed biopsies of the gastric body. I then gently desufflated some of the stomach, and withdrew the endoscope into the distal esophagus. GE junction was measured at 40 cm, there was Hall's esophagus to 37 cm. I performed four-quadrant biopsies of the Hall's. ?Finally, I withdrew the scope along the length of the esophagus taking great care to examine the entirety of the mucosa.? I did not appreciate any abnormalities.
[2022-10-12] VITALS (9 sets, daily range): BP systolic 104–119; BP diastolic 58–88; PULSE 65–81; RESP 12–19; TEMP 36.2–36.6; TEMPC 36.3; O2SAT 96–100; BMI 51.6
[2022-10-12] MEDS: Lactated Ringers 1,000 ML 80 ML IV (08:10)
--- NOTE | 2022-10-12 08:19 | ANES.PREOP_ITS ---
General Info Date of Service Date Performed: 10/12/22 Height: 5 ft 3 in Weight: 132.3 kg Body Mass Index (BMI): 51.6 Surgical Procedure: Operation Date: 10/12/22 09:05 Proposed Procedure Side Surgeon p Gastroscopy Jose D Carbajal MD Meds Allergies and Home Medications Allergies Allergy/AdvReac Type Severity Reaction Status Date / Time azithromycin Allergy Intermediate Hives Verified 10/12/22 07:46 Home Medication Medication Instructions Recorded sertraline 100 mg tablet (Zoloft) 100 mg PO DAILY 04/10/19 cholecalciferol (vitamin D3) 25 25 mcg PO DAILY 11/25/21 mcg (1,000 unit) capsule lansoprazole 30 mg capsule,delayed 30 mg PO DAILY 11/25/21 release (Prevacid) szaqanvuaauv-Fu-vdmj-minerals 18 1 tab PO 04/20/22 mg-0.4 mg tablet dulaglutide 3 mg/0.5 mL 3 mg subcut QWEEK 09/29/22 subcutaneous pen injector (Trulicity) Current Visit Medications: Current Medications Generic Name Dose Route Start Last Admin Trade Name Freq PRN Reason Stop Dose Admin Hyoscyamine Sulfate 0.125 mg 10/11/22 19:23 Hyoscyamine 0.125 Mg Sl/Oral/Chew SL DIRECTED PRN Ringer's Solution 1,000 mls @ 80 mls/hr 10/12/22 06:00 10/12/22 08:10 IV 11/10/22 23:59 80 mls/hr INFUSION DC Administration IV Miscellaneous Supplies 1 each 10/12/22 06:00 Iv Access IV 11/10/22 23:59 DIRECTED DC Ondansetron HCl 4 mg 10/11/22 19:23 Ondansetron 4 Mg/2 Ml Vial IVP Q4H PRN PRN Nausea / Vomiting Sodium Chloride 0 ml 10/12/22 06:00 Normal Saline Flush 10 Ml Syr IV 11/10/22 23:59 PRN PRN Sodium Chloride 0 ml 10/12/22 06:00 Normal Saline 10 Ml Vial IJ 11/10/22 23:59 DIRECTED PRN Sterile Water 0 ml 10/12/22 06:00 Water,Injection,Sterile 10 Ml Vial IJ 11/10/22 23:59 DIRECTED PRN PFSH Active Problems Active Problems: Problem Status Onset Code Tonsillar enlargement J35.1 History of carpal tunnel surgery of right wrist 04/20/22 Z98.890 No-show for appointment Z53.29 GERD (gastroesophageal reflux disease) K21.9 Carpal tunnel syndrome G56.00 Pre-diabetes R73.03 Headache R51.9 Adjustment disorder with mixed anxiety and depressed mood F43.23 Right carpal tunnel syndrome G56.01 Medical History Medical History Anxiety BMI 50.0-59.9, adult Fatigue History of anxiety History of prediabetes Hx of gastroesophageal reflux (GERD) CHIDI (obstructive sleep apnea) Surgical History Surgical History History of bilateral tubal ligation History of section x 3 History of cholecystectomy Tobacco Smoking/Tobacco Use Status: Never Alcohol Alcohol Intake: current Alcohol intake frequency: holidays/special occasions only Substance Use Substance use: Never Substance use type: does not use Vital Signs and Lab Results Vital Signs Most Recent Vital Signs in EMR: Most Recent Vital Signs Temp Pulse Resp BP Pulse Ox 36.2 C L 75 17 117/88 98 10/12/22 07:45 10/12/22 07:45 10/12/22 07:45 10/12/22 07:45 10/12/22 07:45 Point of Care Results Point of Care Results: POC- Test(urine) Negative 10/12/22 08:01 Lab Results Blood Type / Crossmatch: No Data to Display Complete Blood Count: No Data to Display Complete Metabolic Panel: No Data to Display Liver Function Panel: No Data to Display Coagulation Panel: No Data to Display Cardiac Panel: No Data to Display Arterial Blood Gas: No Data to Display Venous Blood Gas: No Data to Display Pancreas Panel: No Data to Display Thyroid Panel: No Data to Display Infectious Disease: No Data to Display Blood Cultures: No Data to Display Toxicology Panel: No Data to Display Panel: No Data to Display Anesthesia Assessment and Plan Anesthesia History Personal History: No History of Anesthesia Complications Family History: No Family History of Anesthesia Complications Exercise Tolerance Exercise Tolerance: Metabolic Equivalents>4 Pertinent Negatives Pertinent Negatives: No Major Cardiovascular Symptoms or Complaints and No H istory of CVA/TIA Cardiac & Pulmonary Exam Cardiac Exam: Normal S1/S2 Heart Sounds Pulmonary Exam: Clear Bilateral Breath Sounds Implantable Cardiac Device Does patient have a Pacemaker or an ICD?: No Airway Exam Known Difficult Airway: No Mallampati Class: 1 Mouth Opening: Normal (> 3cm) Thyromental Distance: Greater than 3 cm Neck Range of Motion: Full ROM Neck Circumference: Thick Teeth Condition: Normal Dentition ASA Classification ASA Score: ASA 3 Emergency Case?: No NPO Status NPO Status: NPO Clears >2 hours, Solids >8 hours Status Status: Negative HCG Anesthesia Plan Resuscitation Status: Full Code Anesthesia Technique: General Anesthesia Airway Planned: Endotracheal Tube Monitors Used: Standard Monitors Preoperative Comments:: Suspected CHIDI -sleep study Oct 10 results pending
--- NOTE | 2022-10-12 09:22 | STOM_PTH ---
PATIENT: Karlie Bach LOC: [facility] U#:[id number] AGE/SX: 42/F ROOM: RE10/12/[address]: Jose D Carbajal MD : 1980 BED: DIS: 10/12/2022 SPEC #: [id number] RECD: 10/12/22 12:24 STATUS: ANAND RE #: [id number] CAMRYN: 10/12/22 09:[address]: Jose D Carbajal DEPT: Surgical Specimen RECD BY: Linda Hook ENTERED: 10/12/22 12:25 SP TYPE: STOMACH OTHR DR: BEAU FELIPE ECOLOGICAL RISK ASSESSOR Tissues: 1 - BIOPSY BOWEL 2 - STOMACH BIOPSY 3 - STOMACH BIOPSY 4 - ESOPHAGUS BIOPSY Procedures: GROSS AND MICRO LEVEL 4 Comments: [id number]
--- NOTE | 2022-10-12 11:03 | W.ANESPOSTOP ---
Postoperative Evaluation Date, Time and Location Date Performed: 10/12/22 Time Performed: 11:10 Patient Location: Day Surgery Unit Vital Signs Most Recent Imported Vital Signs: Most Recent Vital Signs Temp Pulse Resp BP Pulse Ox 36.3 C L 67 15 104/58 L 100 10/12/22 10:26 10/12/22 10:26 10/12/22 10:26 10/12/22 10:10/12/22 10:26 Most Recent Manually Entered Vital Signs: Adult Blood Pressure: 117/81 Heart Rate: 65 Respirations: 12 Oxygen Saturation (%): 100 Temperature (C): 36.3 C Pain Score (0-10 Scale): 0 Pain Score Most Recent Pain Score: Most Recent Pain Score Pain Level 2 10/12/22 10:26 Assessment Mental Status: Awake (Alert & Oriented to Patient Baseline) Airway and Respiratory Function: Patent airway with normal (patient baseline) respiratory exam Cardiovascular Function: Hemodynamically Stable Hydration Status: Adequately Hydrated Nausea & Vomiting: No Nausea or Vomiting Pain: Pt. Denies Any Pain Peripheral Nerve Block: Patient did not receive a nerve block
== END 2022-10-12 11:20 | disposition home or self-care (01) ==
LOC: SUR 07:41
PROVIDERS: PCP Nurse Practitioner Family; Visit Provider Surgery
PROC: 0DJ68ZZ Inspection of Stomach, Via Natural or Artificial Opening Endoscopic (ICD-10-PCS; CPT 43235; principal; 2022-10-12 09:00)
DX: K21.9 Gastro-esophageal reflux disease without esophagitis (principal); K22.70 Barrett's esophagus without dysplasia; K29.60 Other gastritis without bleeding; G47.33 Obstructive sleep apnea (adult) (pediatric); R73.03 Prediabetes; Z68.43 Body mass index [BMI] 50.0-59.9, adult; E66.3 Overweight; K22.89 Other specified disease of esophagus
CPT/HCPCS: 43239; 88305; J2250

== ENCOUNTER 2023-04-04 17:52 | Outpatient (REF) | payer MEDICAID, SELFPAY ==
[2023-04-04 18:32] LABS: Abs Immature Grans 0.02 10^3/uL (0.0-0.06); Absolute Basophil Count 0.05 10^3/uL (0.0-0.2); Absolute Eosinophil Count 0.22 10^3/uL (0.0-0.7); Absolute Lymphocyte Count 2.07 10^3/uL (1.2-3.4); Absolute Monocyte Count 0.46 10^3/uL (0.1-0.8); Absolute Neutrophil Count 4.56 10^3/uL (1.2-6.7); Basophils % 0.7; HCT 36.9 % (36.0-46.0); HGB 11.7 g/dL (11.2-15.7); Immature Grans % 0.3; MCH 27.6 pg (27.0-33.0); MCHC 31.7 % (32.0-36.0); MCV 87 fL (80-95); MPV 11.5 fL (8.0-11.0); Monocytes % 6.2; Neutrophils % 61.8; Platelet Count 290 10^3/uL (130-400); RBC 4.24 10^6/uL (3.93-5.22); RDW 13.5 % (11.7-14.6); RDW-SD 42.5 fL; WBC 7.38 10^3/uL (4.4-10.8)
[2023-04-04 18:38] LABS: Iron 29 ug/dL (50-170); Total Iron Binding Capacity 290 ug/dL (250-450); Transferrin Sat 10 % (15-50)
[2023-04-04 18:52] LABS: ALT 27 U/L (14-59); AST 18 U/L (15-37); Albumin 3.5 g/dL (3.4-5.0); Alkaline Phosphatase 102 U/L (46-116); BUN 12 mg/dL (7-18); Bilirubin, Total 0.2 mg/dL (0.2-1.0); CREATININE 0.8 mg/dL (0.55-1.02); Chloride 103 mmol/L (98-107); Estimated GFR 95.46 (mL/min/1.73m2); Glucose 132 mg/dL (74-106); Potassium 4.2 mmol/L (3.5-5.1); Sodium 135 mmol/L (136-145); TSH (W/Ref FT4) 2.26 uIU/mL (0.36-3.74); Total Protein 7.2 g/dL (6.4-8.2)
[2023-04-04 18:58] LABS: Hemoglobin A1C 5.7 % (<5.7)
== END 2023-04-04 17:53 | disposition home or self-care (01) ==
LOC: NCHCN 17:52
PROVIDERS: PCP Nurse Practitioner Family; Visit Provider Nurse Practitioner Family
DX: R53.83 Other fatigue (principal); R73.03 Prediabetes; F50.81 Binge eating disorder; K21.9 Gastro-esophageal reflux disease without esophagitis; G47.33 Obstructive sleep apnea (adult) (pediatric)
CPT/HCPCS: 80053; 83036; 83540; 83550; 84443; 85025

== ENCOUNTER 2023-12-11 09:08 | Emergency (ER) | payer MEDICAID, SELFPAY ==
[2023-12-11 09:16] VITALS: BP 145/95; PULSE 71; RESP 16; TEMP 36; O2SAT 98
--- OUTSIDE RECORDS SUMMARY | 2023-12-11 09:33 | XMS_ITS | Continuity of Care Document ---
Author Name Unknown Organization [facility] Address [address] [place] [address] Encounter [facility] FIN NBR [id number] Date(s): 02/10/23 - 02/10/23 [facility] [address], [place] [address] Encounter Diagnosis Spontaneous hematoma of abdominal wall(Discharge Diagnosis) - 02/10/23 Discharge Disposition: Home f/u Internal Provider Attending Physician: Abraham Oneil MD Admitting Physician: Abraham Oneil MD Allergies, Adverse Reactions, Alerts No Known Medication Allergies Mental Status 02/10/23 Eye Opening Response Haines Spontaneous ly Best Verbal Response Hal Oriented Best Motor Response Hal Obeys comman ds Haines Coma Score 15 Results Laboratory List Name Date CBC w/ Diff 02/10/23 Comprehensive Metabolic Panel (CMP) 02/10 Automated Diff 02/10/23 Most recent to oldest [Reference Range]: 1 WBC [4.8-10.8 K/mcL] 10.6 K/mcL (02/10/23 9:30 PM) RBC [4.20-5.40 Million/mcL] 3.78 Million /mcL *LOW* (02/10/23 9:30 PM) Neutro Auto [42.2-75.2 %] 65.5 % (02/10/23 9:30 PM) Lymph Auto [20.5-51.1 %] 25.0 % (02/10/23 9:30 PM) [place] Auto [1.7-9.3 %] 6.8 % (02/10/23 9:30 PM) Basophil Auto [0.0-0.8 %] 0.4 % (02/10/23 9:30 PM) BUN [8-26 mg/dL] 20 mg/dL (02/10/23 9:30 PM) Glucose Level [74-106 mg/dL] 113 mg/dL *HI* (02/10/23 9:30 PM) Potassium Level [3.5-5.1 mmol/L] 3.6 mmo l/L (02/10/23 9:30 PM) Baso Absolute [0.0-0.2 K/mcL] 0.0 K/mcL (02/10/23 9:30 PM) MCV [81.0-99.0 fL] 86.2 fL (02/10/23 9:30 PM) AST [15-41 IntlUnit/L] 21 IntlUnit/L (02/10/23 9:30 PM) ALT [14-54 IntlUnit/L] 19 IntlUnit/L (02/10/23 9:30 PM) MCHC [32.0-36.0 g/dL] 32.2 g/dL (02/10/23 9:30 PM) Osmolality [275-295 mOsm/kg] 275 mOsm/kg (02/10/23 9:30 PM) Sodium Level [134-143 mmol/L] 136 mmol/L (02/10/23 9:30 PM) Lymph Absolute [1.2-3.4 K/mcL] 2.7 K/mcL (02/10/23 9:30 PM) Hct [37.0-47.0 %] 32.6 % *LOW* (02/10/23 9:30 PM) Calcium Level [8.9-10.3 mg/dL] 8.5 mg/dL *LOW* (02/10/23 9:30 PM) [place] Absolute [0.1-0.6 K/mcL] 0.7 K/mcL *HI* (02/10/23 9:30 PM) Albumin Level [3.5-5.0 g/dL] 3.6 g/dL (02/10/23 9:30 PM) Protein Total [6.5-8.1 g/dL] 7.1 g/dL (02/10/23 9:30 PM) MCH [27.0-31.0 pg] 27.8 pg (02/10/23 9:30 PM) Neutro Absolute [1.4-6.5 K/mcL] 7.0 K/mc L *HI* (02/10/23 9:30 PM) Bilirubin Total [0.2-1.2 mg/dL] 0.3 mg/d L (02/10/23 9:30 PM) Hgb [12.0-16.0 g/dL] 10.5 g/dL *LOW* (02/10/23 9:30 PM) Alk Phos [38-130 IntlUnit/L] 71 IntlUnit /L (02/10/23 9:30 PM) MPV [7.4-10.4 fL] 11.1 fL *HI* (02/10/23 9:30 PM) Platelets [130-400 K/mcL] 225 K/mcL (02/10/23 9:30 PM) CO2 [22-32 mmol/L] 24 mmol/L (02/10/23 9:30 PM) Eos Absolute [0.0-0.2 K/mcL] 0.2 K/mcL (02/10/23 9:30 PM) Chloride Level [98-111 mmol/L] 106 mmol/ L (02/10/23 9:30 PM) RDW-CV [11.5-14.5 %] 13.5 % (02/10/23 9:30 PM) A/G Ratio 1.0 *NA* (02/10/23 9:30 PM) BUN/Creat Ratio [8.0-20.0] 32.8 *HI* (02/10/23 9:30 PM) Globulin 3.5 *NA* (02/10/23 9:30 PM) Imm Gran Absolute 0.03 *NA* (02/10/23 9:30 PM) Imm Gran Auto [0.0-0.5 %] 0.3 % (02/10/23 9:30 PM) Creatinine Level [0.44-1.00 mg/dL] 0.61 mg/dL (02/10/23 9:30 PM) Anion Gap [3.0-12.0] 6.0 (02/10/23 9:30 PM) Eos, Auto [0.00-3.00 %] 2.00 % (02/10/23 9:30 PM) eGFR CKD-EPI [>=60 mL/min/1.73 m2] 116 m L/min/1.73 m2 (02/10/23 9:30 PM) Radiology Reports * Exam Date Time Procedure Performing Provider Status 02/10/23 10:[address] Abdomen and Pelvi s w/ Contrast Nadja Coughlin; Shivani (Verified) Notes: (CT Abdomen and Pelvis w/ Contrast) Reason For Exam: abd pain, cutaneous bruising of pannus CT Abdomen and Pelvis w/ Contrast PROCEDURE INFORMATION: Exam: CT Abdomen And Pelvis With Contrast Exam date and time: 02/10/2023 9:47 PM Age: 42 years old Clinical indication: Abd pain, cutaneous bruising of pannus; Prior surgery; date: 6+ months: C-sections TECHNIQUE: Imaging protocol: Computed tomography of the abdomen and pelvis with contrast. Radiation optimization: All CT scans at this facility use at least one of these dose optimization techniques: automated exposure control; mA and/or kV adjustment per patient size (includes targeted exams where dose is matched to clinical indication); or iterative reconstruction. Contrast material: ISOVUE 300; Contrast volume: 100 ml; Contrast route: INTRAVENOUS (IV); REPORTING DATA: Count of CT and Cardiac NM exams in prior 12 months: This patient has received 0 known CTs and 0 known cardiac nuclear medicine studies in the 12 months prior to the current study. COMPARISON: No relevant prior studies available. FINDINGS: Lungs: No acute infiltrate in either lung base. Liver: Normal. No mass. Gallbladder and bile ducts: Status post cholecystectomy. No biliary tract dilatation. Pancreas: Normal. No ductal dilation. Spleen: Normal. No splenomegaly. Adrenal glands: Normal. No mass. Kidneys and ureters: No hydronephrosis. No calcified renal or ureteral stones. No perinephric stranding or perinephric fluid. Stomach and bowel: Unremarkable. No obstruction. No mucosal thickening. Appendix: Normal appendix. Intraperitoneal space: No free air. No significant fluid collection. Vasculature: Unremarkable. No abdominal aortic aneurysm. Lymph nodes: No enlarged lymph nodes. Urinary bladder: Unremarkable as visualized. Reproductive: Normal uterus and left ovary. 2.4 x 2.3 cm complex (33 HU) right ovarian cyst. Bones/joints: Unremarkable. No acute fracture. Soft tissues: Small fat-containing umbilical hernia. Mild soft tissue edema of the lower anterior subcutaneous. Possible associated incompletely-imaged 15 x 15 x 37 mm subcutaneous hematoma. IMPRESSION: 1. Mild soft tissue edema of the lower anterior subcutaneous. Possible associated incompletely-imaged 15 x 15 x 37 mm subcutaneous hematoma. 2. 2.4 x 2.3 cm complex (33 HU) right ovarian cyst. 3. Otherwise, no acute intra-abdominal or pelvic process. THIS DOCUMENT HAS BEEN ELECTRONICALLY SIGNED BY YOVANY OLIVEIRA MD on 02/10/2023 11:06 PM Final Signed by: Yovany Oliveira MD Signed (Electronic Signature): 02/10/2023 11:06 pm Vital Signs Most recent to oldest [Reference Range]: 1 Temperature Tympanic [36.6-37.9 Deg C] 3 6.5 Deg C *LOW* (02/10/23 9:01 PM) Peripheral Pulse Rate [60-100 bpm] 84 bp m (02/10/23 9:01 PM) Respiratory Rate [12-24 br/min] 19 br/mi n (02/10/23 9:01 PM) Blood Pressure [90-140/60-90 mmHg] 134/9 6mmHg (02/10/23 9:01 PM) Weight 135.00 kg (02/10/23 9:01 PM) Weight Dosing 135.00 kg (02/10/23 9:21 PM) Height 160.000 cm (02/10/23 9:01 PM) Height/Length Dosing 160.000 cm (02/10/23 9:21 PM) Body Mass Index 53.000 kg/m2 (02/10/23 9:01 PM) Social History Social History Type Response Tobacco Never tobacco user T obacco Use:. Sex Hospital Discharge Instructions Patient Education 02/10/2023 21:19:43 Hematoma Hematoma A hematoma is a collection of blood under the skin, in an organ, in a body space, in a joint space,or in other tissue. The blood can thicken (clot) to form a lump that you can see and feel. The lumpis often firm and may become sore and tender. Most hematomas get better in a few days to weeks. However, some hematomas may be serious and require medical care. Hematomas can range from very small tovery large. What are the causes? This condition is caused by: ??? A blunt or penetrating injury. ??? A leakage from a blood vessel under the skin. ??? Some medical procedures, including surgeries, such as oral surgery, face lifts, and surgeries on the joints. ??? Some medical conditions that cause bleeding or bruising. There may be multiple hematomas that appear in different areas of the body. What increases the risk? You are more likely to develop this condition if: ??? You are an older adult. ??? You use blood thinners. What are the signs or symptoms? Symptoms of this condition depend on where the hematoma is located. Common symptoms of a hematoma that is under the skin include: ??? A firm lump on the body. ??? Pain and tenderness in the area. ??? Bruising. Blue, dark blue, purple-red, or yellowish skin (discoloration) may appear at the siteof the hematoma if the hematoma is close to the surface of the skin. Common symptoms of a hematoma that is deep in the tissues or body spaces may be less obvious. They include: ??? A collection of blood in the stomach (intra-abdominal hematoma). This may cause pain in the abdomen, weakness, fainting, and shortness of breath. ??? A collection of blood in the head (intracranial hematoma). This may cause a headache or symptoms such as weakness, trouble speaking or understanding, or a change in consciousness.?? How is this diagnosed? This condition is diagnosed based on: ??? Your medical history. ??? A physical exam. ??? Imaging tests, such as an ultrasound or CT scan. These may be needed if your health care provider suspects a hematoma in deeper tissues or body spaces. ??? Blood tests. These may be needed if your health care provider believes that the hematoma is caused by a medical condition. How is this treated? Treatment for this condition depends on the cause, size, and location of the hematoma. Treatment may include: ??? Doing nothing. The majority of hematomas do not need treatment as many of them go away on theirown over time. ??? Surgery or close monitoring. This may be needed for large hematomas or hematomas that affect vital organs. ??? Medicines. Medicines may be given if there is an underlying medical cause for the hematoma. Follow these instructions at home: Managing pain, stiffness, and swelling ??? If directed, put ice on the affected area. ??? Put ice in a plastic bag. ??? Place a towel between your skin and the bag. ??? Leave the ice on for 20 minutes, 2???3 times a day for the first couple of days. ??? If directed, apply heat to the affected area after applying ice for a couple of days. Use the heat source that your health care provider recommends, such as a moist heat pack or a heating pad. ??? Place a towel between your skin and the heat source. ??? Leave the heat on for 20???30 minutes. ??? Remove the heat if your skin turns bright red. This is especially important if you are unable to feel pain, heat, or cold. You may have a greater risk of getting burned. ??? Raise (elevate) the affected area above the level of your heart while you are sitting or lying down. ??? If told, wrap the affected area with an elastic bandage. The bandage applies pressure (compression) to the area, which may help to reduce swelling and promote healing. Do not wrap the bandage tootightly around the affected area. ??? If your hematoma is on a leg or foot (lower extremity) and is painful, your health care provider may recommend crutches. Use them as told by your health care provider. General instructions ??? Take [id number] and prescription medicines only as told by your health care provider. ??? Keep all follow-up visits as told by your health care provider. This is important. Contact a health care provider if: ??? You have a fever. ??? The swelling or discoloration gets worse. ??? You develop more hematomas. Get help right away if: ??? Your pain is worse or your pain is not controlled with medicine. ??? Your skin over the hematoma breaks or starts bleeding. ??? Your hematoma is in your chest or abdomen and you have weakness, shortness of breath, or a change in consciousness. ??? You have a hematoma on your scalp that is caused by a fall or injury, and you also have: ??? A headache that gets worse. ??? Trouble speaking or understanding speech. ??? Weakness. ??? Change in alertness or consciousness. Summary ??? A hematoma is a collection of blood under the skin, in an organ, in a body space, in a joint space, or in other tissue. ??? This condition usually does not need treatment because many hematomas go away on their own overtime. ??? Large hematomas, or those that may affect vital organs, may need surgical drainage or monitoring. If the hematoma is caused by a medical condition, medicines may be prescribed. ??? Get help right away if your hematoma breaks or starts to bleed, you have shortness of breath, or you have a headache or trouble speaking after a fall. This information is not intended to replace advice given to you by your health care provider. Make sure you discuss any questions you have with your health care provider. Document Revised: 03/12/2020 Document Reviewed: 03/22/2019 [employer] Patient Education ?? 2021 [employer]. Follow Up Care 02/10/2023 21:01:22 With:HERRERA Bales Address: [address] [place] [id number] When: Unknown Comments:Your evaluation in the emergency department today??was performed by sathish NATARAJAN.Follow-up with laboratory evaluation on Tuesday as discussed.?? He the outpatient??lab order is??provided to you. ??Stop and register??for the outpatient lab??that I will contact you with the resultsReturn to the emergency department if there is any worsening pain,??ecchymosis spread significantly upward or??there is any dizziness??vision changes or??syncope. Discharge instructions * Event Display: Discharge Instructions Physician Emergency department Note * HERRERA Bales: MODIFY, PERFORM Event Display: ED Note Physician Authored Date: [id number] CHINYERE BLEVINS :1980 Age:42 years Sex:Female Visit Date:02/10/2023 Basic Information Time Seen: HERRERA Bales / 02/10/2023 21:11 Chief Complaint pt reports sudden onset bruising to underside of abdominal pannas denies injury History Of Present Illness: Patient is a 42-year-old female presents the emergency department with??bruising on her abdomen??that is atraumatic. ??She notes that??she takes a bath every evening and??today??was going about her normal process when she got into the bath??to begin??and noticed that she had a small bruise??up by her navel.?? She contacted her who??evaluated this scenario and found her to be in extensive bruising of her pannus.?? She has limited sensation in this area due to multiple C-sections??and is concerned that there is a process??that is??causing her to bleed. Patient does struggle with slight anemia??and notes that she has been taking iron??which causes hersome constipation but she is got no history of hernias or other GI issues. Patient has no other bruising??throughout her??integumentary system??however she does note that there is??occasionally??bruising from the slightest bump. ??She has not had any dizziness??fever chillsnausea or vomiting??she has been urinating normally without vaginal pain or discharge??and althoughshe has not had a bowel movement today she had a normal bowel movement yesterday. ??She continues to pass flatus. Review of Systems: See HPI Physical Exam Vitals & Measurements T:??36.5?C ??(Tympanic)?? HR:??84??(Peripheral)?? RR:??19?? BP:??134/96?? SpO2:??100%?? HT:??160.000??cm?? WT:??135.00??kg?? BMI:??53.000?? Patient is alert oriented obese female in no acute distress Neck is supple nontender EOM intact, PERRL, sclera anicteric Regular rate and effort Abdomen is obese, there is a??20 cm hematoma??just below the navel on patient's pannus??that is nontender to palpation Bowel sounds are present Medical Decision Making: While here in the emergency department patient was evaluated and there was a significant??abdominalhematoma??with ecchymosis.?? There is no significant tenderness however at this time it was prudentfor us to check laboratory evaluation which is as below shows mild anemia patient is uncertain of her normal??H&H CT scan is revealed??to show??? Procedure No Qualifying Data Assessment/Plan 1.??Spontaneous hematoma of abdominal wall??R23.[address] being returned??care was transferred to Dr. Oneil for definitive discharge if the CT revealed any acute findings. ??Otherwise I had a discussion with the patient in regards to the fact that her??laboratory evaluation is unremarkable??her??exam does show hematoma??and I do not feel that there is any acute findings on my cursory review of the CT. ??We will repeat her laboratory evaluation on Tuesday??and??if there is any question or concerns she will return to the emergency department She was ultimately discharged by Dr. Oneil??after CT revealed potential hematoma without other complications. Orders: CT Abdomen and Pelvis w/ Contrast, 02/10/23 21:24:00 EDT, Stat, Reason: abd pain, cutaneous bruising of pannus, Transport Mode: Stretcher Patient Education Hematoma Follow Up With When Contact Information HERRERA Bales [address] [place] [address] Additional Instructions: Your evaluation in the emergency department today??was performed by sathish NATARAJAN. ?? Follow-up with laboratory evaluation on Tuesday as discussed.?? He the outpatient??lab order is??provided to you. ??Stop and register??for the outpatient lab??that I will contact you with the results Return to the emergency department if there is any worsening pain,??ecchymosis spread significantlyupward or??there is any dizziness??vision changes or??syncope. Problem List/Past Medical History Ongoing Morbid obesity Historical No qualifying data Allergies No Known Medication Allergies Social History Alcohol Never Electronic Cigarette/Vaping Electronic Cigarette Use: Never. Tobacco Never tobacco user Tobacco Use:. Lab Results CBC and Differential?? LATEST RESULTS?? WBC?? 02/10/23 21:30?? 10.6?? RBC?? 02/10/23 21:30?? 3.78 ??Low?? Hgb?? 02/10/23 21:30?? 10.5 ??Low?? Hct?? 02/10/23 21:30?? 32.6 ??Low?? MCV?? 02/10/23 21:30?? 86.2?? MCH?? 02/10/23 21:30?? 27.8?? MCHC?? 02/10/23 21:30?? 32.2?? RDW-CV?? 02/10/23 21:30?? 13.5?? Platelets?? 02/10/23 21:30?? 225?? MPV?? 02/10/23 21:30?? 11.1 ??High?? Neutro Auto?? 02/10/23 21:30?? 65.5?? Lymph Auto?? 02/10/23 21:30?? 25.0?? [place] Auto?? 02/10/23 21:30?? 6.8?? Eos, Auto?? 02/10/23 21:30?? 2.00?? Basophil Auto?? 02/10/23 21:30?? 0.4?? Imm Gran Auto?? 02/10/23 21:30?? 0.3?? Neutro Absolute?? 02/10/23 21:30?? 7.0 ??High?? Lymph Absolute?? 02/10/23 21:30?? 2.7?? [place] Absolute?? 02/10/23 21:30?? 0.7 ??High?? Eos Absolute?? 02/10/23 21:30?? 0.2?? Baso Absolute?? 02/10/23 21:30?? 0.0?? Imm Gran Absolute?? 02/10/23 21:30?? 0.03? Routine Chemistry?? LATEST RESULTS?? Sodium Level?? 02/10/23 21:30?? 136?? Potassium Level?? 02/10/23 21:30?? 3.6?? Chloride Level?? 02/10/23 21:30?? 106?? CO2?? 02/10/23 21:30?? 24?? Alk Phos?? 02/10/23 21:30?? 71?? AST?? 02/10/23 21:30?? 21?? ALT?? 02/10/23 21:30?? 19?? BUN?? 02/10/23 21:30?? 20?? Glucose Level?? 02/10/23 21:30?? 113 ??High?? Creatinine Level?? 02/10/23 21:30?? 0.61?? BUN/Creat Ratio?? 02/10/23 21:30?? 32.8 ??High?? Calcium Level?? 02/10/23 21:30?? 8.5 ??Low?? Protein Total?? 02/10/23 21:30?? 7.1?? Albumin Level?? 02/10/23 21:30?? 3.6?? Globulin?? 02/10/23 21:30?? 3.5?? A/G Ratio?? 02/10/23 21:30?? 1.0?? Bilirubin Total?? 02/10/23 21:30?? 0.3?? Anion Gap?? 02/10/23 21:30?? 6.0?? Osmolality?? 02/10/23 21:30?? 275?? eGFR CKD-EPI?? 02/10/23 21:30?? 116? Electronically Signed on 02/11/23 10:30 AM HERRERA Bales Emergency department Discharge instructions * Abraham Oneil MD: PERFORM Event Display: ED Discharge Information Authored Date: [id number] CHINYERE BLEVINS :1980 Age:42 years Sex:Female Visit Date:02/10/2023 Discharge Instructions We would like to thank you for allowing us to assist you with your healthcare needs. The following includes patient education materials and information regarding your injury/illness. Diagnosis from Today's Visit Spontaneous hematoma of abdominal wall Discharge Vitals Temperature??(Tympanic) 97.7 ??F (36.5 ??C) Heart Rate??(Peripheral) 84 Respiratory Rate?? 19 Blood Pressure?? 134/96?? Height?? 62.99 in (160.000 cm) Weight?? 297.68 lb (135.00 kg) BMI?? 53.000 Allergies No Known Medication Allergies What to Do Next You Need to Schedule the Following Appointments Follow Up with??HERRERA Bales Why: Your evaluation in the emergency department today??was performed by above PA-C. ?? Follow-up with laboratory evaluation on Tuesday as discussed.?? He the outpatient??lab order is??provided to you. ??Stop and register??for the outpatient lab??that I will contact you with the results Return to the emergency department if there is any worsening pain,??ecchymosis spread significantlyupward or??there is any dizziness??vision changes or??syncope. Where: [address] [place] [phone] You were treated today on an emergency basis; it may be dwyer to contact your primary care provider to notify them of your visit today. You may have been referred to your regular doctor or a specialist, please follow up as instructed. If your condition worsens or you can't get in to see the doctor, contact the Emergency Department. Education Materials Hematoma A hematoma is a collection of blood under the skin, in an organ, in a body space, in a joint space,or in other tissue. The blood can thicken (clot) to form a lump that you can see and feel. The lumpis often firm and may become sore and tender. Most hematomas get better in a few days to weeks. However, some hematomas may be serious and require medical care. Hematomas can range from very small tovery large. What are the causes? This condition is caused by: ? A blunt or penetrating injury. ? A leakage from a blood vessel under the skin. ? Some medical procedures, including surgeries, such as oral surgery, face lifts, and surgeries on the joints. ? Some medical conditions that cause bleeding or bruising. There may be multiple hematomas that appear in different areas of the body. What increases the risk? You are more likely to develop this condition if: ? You are an older adult. ? You use blood thinners. What are the signs or symptoms? Symptoms of this condition depend on where the hematoma is located. Common symptoms of a hematoma that is under the skin include: ? A firm lump on the body. ? Pain and tenderness in the area. ? Bruising. Blue, dark blue, purple-red, or yellowish skin (discoloration) may appear at the site of the hematoma if the hematoma is close to the surface of the skin. Common symptoms of a hematoma that is deep in the tissues or body spaces may be less obvious. They include: ? A collection of blood in the stomach (intra-abdominal hematoma). This may cause pain in the abdomen, weakness, fainting, and shortness of breath. ? A collection of blood in the head (intracranial hematoma). This may cause a headache or symptoms such as weakness, trouble speaking or understanding, or a change in consciousness.?? How is this diagnosed? This condition is diagnosed based on: ? Your medical history. ? A physical exam. ? Imaging tests, such as an ultrasound or CT scan. These may be needed if your health care provider suspects a hematoma in deeper tissues or body spaces. ? Blood tests. These may be needed if your health care provider believes that the hematoma is caused by a medical condition. How is this treated? Treatment for this condition depends on the cause, size, and location of the hematoma. Treatment may include: ? Doing nothing. The majority of hematomas do not need treatment as many of them go away on their ownover time. ? Surgery or close monitoring. This may be needed for large hematomas or hematomas that affect vital organs. ? Medicines. Medicines may be given if there is an underlying medical cause for the hematoma. Follow these instructions at home: Managing pain, stiffness, and swelling ? If directed, put ice on the affected area. ? Put ice in a plastic bag. ? Place a towel between your skin and the bag. ? Leave the ice on for 20 minutes, 2???3 times a day for the first couple of days. ? If directed, apply heat to the affected area after applying ice for a couple of days. Use the heat source that your health care provider recommends, such as a moist heat pack or a heating pad. ? Place a towel between your skin and the heat source. ? Leave the heat on for 20???30 minutes. ? Remove the heat if your skin turns bright red. This is especially important if you are unable to feel pain, heat, or cold. You may have a greater risk of getting burned. ? Raise (elevate) the affected area above the level of your heart while you are sitting or lying down. ? If told, wrap the affected area with an elastic bandage. The bandage applies pressure (compression)to the area, which may help to reduce swelling and promote healing. Do not wrap the bandage too tightly around the affected area. ? If your hematoma is on a leg or foot (lower extremity) and is painful, your health care provider may recommend crutches. Use them as told by your health care provider. General instructions ? Take kmpi-vwy-[id number] and prescription medicines only as told by your health care provider. ? Keep all follow-up visits as told by your health care provider. This is important. Contact a health care provider if: ? You have a fever. ? The swelling or discoloration gets worse. ? You develop more hematomas. Get help right away if: ? Your pain is worse or your pain is not controlled with medicine. ? Your skin over the hematoma breaks or starts bleeding. ? Your hematoma is in your chest or abdomen and you have weakness, shortness of breath, or a change in consciousness. ? You have a hematoma on your scalp that is caused by a fall or injury, and you also have: ? A headache that gets worse. ? Trouble speaking or understanding speech. ? Weakness. ? Change in alertness or consciousness. Summary ? A hematoma is a collection of blood under the skin, in an organ, in a body space, in a joint space,or in other tissue. ? This condition usually does not need treatment because many hematomas go away on their own over time. ? Large hematomas, or those that may affect vital organs, may need surgical drainage or monitoring. If the hematoma is caused by a medical condition, medicines may be prescribed. ? Get help right away if your hematoma breaks or starts to bleed, you have shortness of breath, or you have a headache or trouble speaking after a fall. This information is not intended to replace advice given to you by your health care provider. Make sure you discuss any questions you have with your health care provider. Document Revised: 03/12/2020 Document Reviewed: 03/22/2019 [employer] [facility] Patient Education ?? 2021 [employer] Tests Performed Radiology CT Abdomen and Pelvis w/ Contrast 02/10/2023 23:06 EDT Lab Test Name Test Result Date/Time WBC 10.6 K/mcL 02/10/2023 21:30 EDT RBC 3.78 Million/mcL 02/10/2023 21:30 EDT Hgb 10.5 g/dL 02/10/2023 21:30 EDT Hct 32.6 % 02/10/2023 21:30 EDT MCV 86.2 fL 02/10/2023 21:30 EDT MCH 27.8 pg 02/10/2023 21:30 EDT MCHC 32.2 g/dL 02/10/2023 21:30 EDT RDW-CV 13.5 % 02/10/2023 21:30 EDT Platelets 225 K/mcL 02/10/2023 21:30 EDT MPV 11.1 fL 02/10/2023 21:30 EDT Neutro Auto 65.5 % 02/10/2023 21:30 EDT Lymph Auto 25.0 % 02/10/2023 21:30 EDT [place] Auto 6.8 % 02/10/2023 21:30 EDT Eos, Auto 2.00 % 02/10/2023 21:30 EDT Basophil Auto 0.4 % 02/10/2023 21:30 EDT Imm Gran Auto 0.3 % 02/10/2023 21:30 EDT Neutro Absolute 7.0 K/mcL 02/10/2023 21:30 EDT Lymph Absolute 2.7 K/mcL 02/10/2023 21:30 EDT [place] Absolute 0.7 K/mcL 02/10/2023 21:30 EDT Eos Absolute 0.2 K/mcL 02/10/2023 21:30 EDT Baso Absolute 0.0 K/mcL 02/10/2023 21:30 EDT Imm Gran Absolute 0.03 02/10/2023 21:30 EDT Sodium Level 136 mmol/L 02/10/2023 21:30 EDT Potassium Level 3.6 mmol/L 02/10/2023 21:30 EDT Chloride Level 106 mmol/L 02/10/2023 21:30 EDT CO2 24 mmol/L 02/10/2023 21:30 EDT Alk Phos 71 IntlUnit/L 02/10/2023 21:30 EDT AST 21 IntlUnit/L 02/10/2023 21:30 EDT ALT 19 IntlUnit/L 02/10/2023 21:30 EDT BUN 20 mg/dL 02/10/2023 21:30 EDT Glucose Level 113 mg/dL 02/10/2023 21:30 EDT Creatinine Level 0.61 mg/dL 02/10/2023 21:30 EDT BUN/Creat Ratio 32.8 02/10/2023 21:30 EDT Calcium Level 8.5 mg/dL 02/10/2023 21:30 EDT Protein Total 7.1 g/dL 02/10/2023 21:30 EDT Albumin Level 3.6 g/dL 02/10/2023 21:30 EDT Globulin 3.5 02/10/2023 21:30 EDT A/G Ratio 1.0 02/10/2023 21:30 EDT Bilirubin Total 0.3 mg/dL 02/10/2023 21:30 EDT Anion Gap 6.0 02/10/2023 21:30 EDT Osmolality 275 mOsm/kg 02/10/2023 21:30 EDT eGFR CKD-EPI 116 mL/min/1.73 m2 02/10/2023 21:30 EDT Patient/Grain Thresher Signature Patient Name:CHINYERE BLEVINS John I have received this information and my questions have been answered. Patient/Grain Thresher Name: Patient/Grain Thresher Signature: Relationship to Patient: Witness Name/Signature: Date: Electronically Signed on: 02/10/2023 23:13 EDTSigned by:NATHAN CT Abdomen and Pelvis W contrast IV * Yovany Oliveira MD: VERIFY, VERIFY Event Display: Report PROCEDURE INFORMATION: Exam: CT Abdomen And Pelvis With Contrast Exam date and time: 02/10/2023 9:47 PM Age: 42 years old Clinical indication: Abd pain, cutaneous bruising of pannus; Prior surgery; date: 6+ months: C-sections TECHNIQUE: Imaging protocol: Computed tomography of the abdomen and pelvis with contrast. Radiation optimization: All CT scans at this facility use at least one of these dose optimization techniques: automated exposure control; mA and/or kV adjustment per patient size (includes targeted exams where dose is matched to clinical indication); or iterative reconstruction. Contrast material: ISOVUE 300; Contrast volume: 100 ml; Contrast route: INTRAVENOUS (IV); REPORTING DATA: Count of CT and Cardiac NM exams in prior 12 months: This patient has received 0 known CTs and 0 known cardiac nuclear medicine studies in the 12 months prior to the current study. COMPARISON: No relevant prior studies available. FINDINGS: Lungs: No acute infiltrate in either lung base. Liver: Normal. No mass. Gallbladder and bile ducts: Status post cholecystectomy. No biliary tract dilatation. Pancreas: Normal. No ductal dilation. Spleen: Normal. No splenomegaly. Adrenal glands: Normal. No mass. Kidneys and ureters: No hydronephrosis. No calcified renal or ureteral stones. No perinephric stranding or perinephric fluid. Stomach and bowel: Unremarkable. No obstruction. No mucosal thickening. Appendix: Normal appendix. Intraperitoneal space: No free air. No significant fluid collection. Vasculature: Unremarkable. No abdominal aortic aneurysm. Lymph nodes: No enlarged lymph nodes. Urinary bladder: Unremarkable as visualized. Reproductive: Normal uterus and left ovary. 2.4 x 2.3 cm complex (33 HU) right ovarian cyst. Bones/joints: Unremarkable. No acute fracture. Soft tissues: Small fat-containing umbilical hernia. Mild soft tissue edema of the lower anterior subcutaneous. Possible associated incompletely-imaged 15 x 15 x 37 mm subcutaneous hematoma. IMPRESSION: 1. Mild soft tissue edema of the lower anterior subcutaneous. Possible associated incompletely-imaged 15 x 15 x 37 mm subcutaneous hematoma. 2. 2.4 x 2.3 cm complex (33 HU) right ovarian cyst. 3. Otherwise, no acute intra-abdominal or pelvic process. THIS DOCUMENT HAS BEEN ELECTRONICALLY SIGNED BY YOVANY OLIVEIRA MD on 02/10/2023 11:06 PM Final Signed by: Yovany Oliveira MD Signed (Electronic Signature): 02/10/2023 11:06 pm Patient Care team information Care Team Personnel Name: HERRERA Bales Position: Physician Member Role: Physician Medical Transcription Editor Address: Address: [address] [place] [id number] Name: Marko Gonzales Position: Nurse Member Role: ED Nurse
--- NOTE | 2023-12-11 09:39 | ED.GENADUL_ITS ---
HPI General Date/Time Provider Initiated Documentation: 12/11/23 09:11 . Limitations to Documentation: no limitations . Information obtained by: patient and RN notes reviewed . History of Present Illness 43 year old F presents to the emergency department with the chief complaint of rash on chest, under breasts, right hip, described as moderate, with intensity rated at 2. Quality is described as constant and other (itching), and is localized to the chest and pelvis. Patient reports no radiation. Patient started experiencing this day(s) and it has been constant. No relieving factors improve symptom(s), No exacerbating factors reported . Patient notes no other symptoms.. Patient did receive the following treatments prior to arrival, other (hydrocortisone) Related Data Home Medications Medication Instructions Recorded Confirmed sertraline 100 mg tablet (Zoloft) 100 mg PO DAILY 04/10/19 12/11/23 cholecalciferol (vitamin D3) 25 25 mcg PO DAILY 11/25/21 12/11/23 mcg (1,000 unit) capsule lansoprazole 30 mg capsule,delayed 30 mg PO DAILY 11/25/21 12/11/23 release (Prevacid) mrunepscayio-Jz-oiaw-minerals 18 1 tab PO DAILY 04/20/22 12/11/23 mg-0.4 mg tablet dulaglutide 3 mg/0.5 mL 3 mg subcut QWEEK 09/29/22 12/11/23 subcutaneous pen injector (Trulicity) sucralfate 1 gram tablet (Carafate) 1 g PO QAC bile reflux #30 tabs 10/12/22 12/11/23 clotrimazole 1 % topical cream 1 applic topical BID 3 weeks #30 12/11/23 grams lisdexamfetamine 50 mg capsule 50 mg PO DAILY 12/11/23 12/11/23 (Vyvanse) Previous Rx's Medication Instructions Recorded sucralfate 1 gram tablet (Carafate) 1 g PO QAC bile reflux #30 tabs 10/12/22 clotrimazole 1 % topical cream 1 applic topical BID 3 weeks #30 12/11/23 grams Allergies Allergy/AdvReac Type Severity Reaction Status Date / Time azithromycin Allergy Intermediate Hives Verified 12/11/23 09:18 General Stated Complaint: RashLesion MARCEL: 4 Review of Systems Constitutional Constitutional: Reports as per HPI, Denies chills and Denies fever(s) Musculoskeletal Musculoskeletal: Reports as per HPI Integumentary/Breasts Skin/Breast: Reports as per HPI Neurologic Neurologic: Reports as per HPI Exam Const General: cooperative, healthy appearing, comfortable, no acute distress and well developed Nutritional Appearance: well nourished and overweight Orientation: alert and awake Chest Chest: rash (under breasts and centrally, appears fungal, no abscess or cellulitis) Resp Effort & Inspection: normal respiratory effort, able to speak in complete sentences and no respiratory distress Cardio Rate: regular rate Rhythm: regular rhythm Skin Rashes: rashes noted (under breasts erythema with scattered round extensions consistent with funa) and other (rash along right side of abdomen, in fold, erythematous, moist) Neuro General: patient alert and patient awake Cognition: normal cognition Speech: speech normal Gait: normal gait Sensory Exam: no sensory deficits noted Course Vital Signs Vital signs: Vital Signs Temperature 36.0 C L 12/11/23 09:16 Pulse 71 12/11/23 09:16 Respiratory Rate 16 12/11/23 09:16 Blood Pressure 145/95 H 12/11/23 09:16 Pulse Oximetry 98 12/11/23 09:16 Temperature 36.0 C L 12/11/23 09:16 Temperature Source Skin 12/11/23 09:16 Pulse 71 12/11/23 09:16 Respiratory Rate 16 12/11/23 09:16 Respiratory Effort Normal, Non-Labored 12/11/23 09:20 Blood Pressure 145/95 H 12/11/23 09:16 Blood Pressure Position Sitting 12/11/23 09:16 Pulse Oximetry 98 12/11/23 09:16 Oxygen Delivery Method Room Air 12/11/23 09:16 Oxygen Flow Rate 0 12/11/23 09:16 Pain Level 2 12/11/23 09:16 Medical Decision Making Patient is a pleasant 43-year-old female presenting today with chief complaint of rash under bilateral breasts as well as centrally between her breasts. She reports this began about 2 days ago. Reports that it has been quite itchy. She been trying hard hydrocortisone. Despite this, her rash continues to progress, hydrocortisone if anything is worsening this. Has similar area at the right side of her lower abdomen but this 1 has been present for about a month. Denies any fevers or chills. No significant pain. On exam, patient appears nontoxic. She does have an elevated BMI. Under bilateral breast, patient has a erythematous rash with small scattered circular extensions of the rash consistent with fungal infection. This does appear fairly dry, patient states that he she has been trying to dry this area frequently. In the right abdominal fold, has similar appearance but as this has been present for longer, is more moist. No evidence of cellulitis at this time. With the location between the breast, I do believe the cream is going to be more efficacious for this patient. Will begin her on clotrimazole. She has an appointment coming up with her primary care which she will keep and discussed ho sophie well it is working. Return precautions were discussed. All of her questions and concerns were addressed and she is in agreement this plan. Quality:SDOH Health Related Social Needs: No Data to Display PFSH All Active Problems (Updated 12/11/23 @ 10:03 by HERRERA Acevedo) Fungal infection of skin (Acute) Barretts esophagus (Acute ~10/12/22) Tonsillar enlargement (Acute) History of carpal tunnel surgery of right wrist (Acute 04/20/22) No-show for appointment (Acute) GERD (gastroesophageal reflux disease) (Chronic) Carpal tunnel syndrome (Acute) Pre-diabetes (Acute) Headache (Acute) Adjustment disorder with mixed anxiety and depressed mood (Acute) Right carpal tunnel syndrome (Acute) Medical History (Updated 12/11/23 @ 10:03 by HERRERA Acevedo) Anxiety BMI 50.0-59.9, adult Fatigue CHIDI (obstructive sleep apnea) History of anxiety History of prediabetes Hx of gastroesophageal reflux (GERD) Surgical History (Updated 10/22/22 @ 09:24 by Renate Hastings RN) History of esophagogastroduodenoscopy (EGD) (~10/12/22) History of bilateral tubal ligation History of section x 3 History of cholecystectomy Social History Smoking/Tobacco Use Status: Never Smoking risk assessment performed?: Yes Alcohol Intake: current Alcohol Intake frequency: holidays/special occasions only Drug use: Never Substance use type: does not use Current gender identity: female Do you feel safe at home: Yes Do you feel safe in your relationship?: Yes Discharge Plan Disposition Patient Disposition: Home Condition: Good Discharge Details Clinical Impression: Fungal infection of skin Primary Care Provider: BAEU FELIPE ED Provider: Jewels Atkinson Home Meds and New Rx's Prescriptions: New clotrimazole 1 % cream 1 applic topical BID 21 Days Qty: 30 0RF Continued Trulicity 3 mg/0.5 mL pen injector 3 mg subcut QWEEK lansoprazole [Prevacid] 30 mg capsule,delayed release(DR/EC) 30 mg PO DAILY cholecalciferol (vitamin D3) 25 mcg (1,000 unit) capsule 25 mcg PO DAILY zdcrhierroxx-Qz-ntar-minerals 18-0.4 mg Tablet 1 tab PO DAILY Patient Comments: pt. reports taking multiple vitamin, unsure of brand sucralfate [Carafate] 1 gram tablet 1 g PO QAC Qty: 30 3RF Rx Instructions: take one tablet by mouth every morning sertraline [Zoloft] 100 mg Tablet 100 mg PO DAILY lisdexamfetamine [Vyvanse] 50 mg capsule 50 mg PO DAILY Patient Comments: TAKE 1 CAPSULE BY MOUTH EVERY DAY Discharge Instructions Instructions: Skin Yeast Infection (ED) Additional Instructions: Please apply the clotrimazole cream under your breast as well and the right side rash twice daily for the next 1 to 3 weeks. Please keep your upcoming appoint with your primary care. If develop fever/chills, spreading of the rash, increased pain or other new/worsening symptoms please seek care urgently once a gain. Please try to have these areas be dry and to air is much as possible. Referrals: BEAU FELIPE, WAREHOUSE STOCK CLERK [Primary Care Provider] - Discharge Data Discharge Date/Time-TO BE ENTERED AT DEPARTURE: 12/11/23 10:08
== END 2023-12-11 10:08 | disposition home or self-care (01) ==
PROVIDERS: Emergency Provider Physician Assistant; PCP Nurse Practitioner Family
DX: B36.9 Superficial mycosis, unspecified (principal)
CPT/HCPCS: 99283

== ENCOUNTER 2023-12-16 02:52 | Outpatient (CLI) | payer MEDICAID, SELFPAY ==
[2023-12-16 11:01] LABS: Hemoglobin A1C 6.1 % (<5.7)
[2023-12-16 11:15] LABS: Vitamin D 25 Total 27.5 ng/mL (30-100)
[2023-12-16 11:17] LABS: ALT 21 U/L (14-59); AST 14 U/L (15-37); Albumin 3.5 g/dL (3.4-5.0); Alkaline Phosphatase 92 U/L (46-116); Anion Gap 9.5 mmol/L (3-11); BUN 15 mg/dL (7-18); Bilirubin, Total 0.3 mg/dL (0.2-1.0); CO2 25.5 mmol/L (21.0-32.0); CREATININE 0.7 mg/dL (0.55-1.02); Calcium 9.3 mg/dL (8.5-10.1); Calculated LDL 160 mg/dL (<100); Chloride 106 mmol/L (98-107); Cholesterol 232 mg/dL (<200); Estimated GFR 111.36 (mL/min/1.73m2); Ferritin 50 ng/mL (8-252); Glucose 101 mg/dL (74-106); HDL Cholesterol 53 mg/dL (40-60); Potassium 4.3 mmol/L (3.5-5.1); Sodium 141 mmol/L (136-145); TSH 2.23 uIU/mL (0.36-3.74); Total Protein 7.8 g/dL (6.4-8.2); Triglyceride 98 mg/dL (<150); Vitamin B12 357 pg/mL (193-986)
== END 2023-12-16 02:53 | disposition home or self-care (01) ==
LOC: LBO 02:53
PROVIDERS: PCP Nurse Practitioner Family; Visit Provider Surgery
DX: E66.01 Morbid (severe) obesity due to excess calories (principal); Z68.43 Body mass index [BMI] 50.0-59.9, adult
CPT/HCPCS: 36415; 80053; 80061; 82306; 82607; 82728; 83036; 84443

== ENCOUNTER 2024-05-24 10:00 | Outpatient (REF) | payer MEDICAID, SELFPAY ==
--- NOTE | 2024-05-24 09:45 | PAPFT_PTH ---
PATIENT: Karlie Bach LOC: [facility] U#:[id number] AGE/SX: 43/F ROOM: RE05/24/[address]: Alta Florence DO : 1980 BED: DIS: 05/24/2024 SPEC #: [id number] RECD: 05/24/24 12:56 STATUS: ANAND REQ #: [id number] CAMRYN: 05/24/24 09:[address]: Alta Florence DEPT: [facility] Cytology RECD BY: Linda Hook ENTERED: 05/24/24 12:56 SP TYPE: PAPFT OT DR: BEAU FELIPE NP Tissues: 1 - CX/ENDOCX FOR PAP SMEARS Procedures: PAP THIN PREP/UVM Screening HPV DNA PROBE Comments: [id number] (HPV 16 & 18/45)
== END 2024-05-24 10:01 | disposition home or self-care (01) ==
LOC: LBN 10:00
PROVIDERS: PCP Nurse Practitioner Family; Visit Provider Obstetrics & Gynecology
DX: Z12.4 Encounter for screening for malignant neoplasm of cervix (principal)
CPT/HCPCS: 88142; 87624

== ENCOUNTER 2025-01-30 08:59 | Outpatient (REF) | payer MEDICAID, SELFPAY | END 2025-01-30 09:00 | disposition home or self-care (01) | LOC: LBN 08:59 | PROVIDERS: PCP Nurse Practitioner Family; Visit Provider Obstetrics & Gynecology | DX: N76.0 Acute vaginitis (principal); N89.8 Other specified noninflammatory disorders of vagina | CPT/HCPCS: 87480; 87510; 87660 ==

== ENCOUNTER 2025-04-03 15:16 | Outpatient (REF) | payer MEDICAID, SELFPAY ==
[2025-04-03 21:09] LABS: HGB 11.6 g/dL (11.2-15.7); MCH 27.7 pg (27.0-33.0); MCHC 33.1 % (32.0-36.0); MCV 84 fL (80-95); MPV 11.2 fL (8.0-11.0); Platelet Count 284 10^3/uL (130-400); RBC 4.19 10^6/uL (3.93-5.22); RDW 13.3 % (11.7-14.6); RDW-SD 40.4 fL; WBC 7.52 10^3/uL (4.4-10.8)
[2025-04-03 21:50] LABS: ALT 21 U/L (14-59); AST 20 U/L (15-37); Albumin 3.7 g/dL (3.4-5.0); Alkaline Phosphatase 107 U/L (46-116); Anion Gap 7.5 mmol/L (3-11); BUN 15 mg/dL (7-18); Bilirubin, Total 0.3 mg/dL (0.2-1.0); CO2 26.5 mmol/L (21.0-32.0); CREATININE 0.8 mg/dL (0.55-1.02); Calcium 9.1 mg/dL (8.5-10.1); Calculated LDL 128 mg/dL (<100); Chloride 103 mmol/L (98-107); Cholesterol 193 mg/dL (<200); Estimated GFR 94.28 (mL/min/1.73m2); Glucose 102 mg/dL (74-106); HDL Cholesterol 53 mg/dL (>or=50); Sodium 137 mmol/L (136-145); TSH (W/Ref FT4) 2.03 uIU/mL (0.36-3.74); Total Protein 7.3 g/dL (6.4-8.2); Triglyceride 64 mg/dL (<150); Vitamin B12 346 pg/mL (193-986)
== END 2025-04-03 15:17 | disposition home or self-care (01) ==
LOC: NCHCN 15:16
PROVIDERS: PCP Nurse Practitioner Family; Visit Provider Nurse Practitioner Family
DX: F41.9 Anxiety disorder, unspecified (principal); Z68.43 Body mass index [BMI] 50.0-59.9, adult; E66.9 Obesity, unspecified
CPT/HCPCS: 80053; 80061; 85027; 82607; 84443

== ENCOUNTER 2025-07-03 10:01 | Outpatient (REF) | payer MEDICAID, SELFPAY ==
[2025-07-03 17:15] LABS: COMMENT (LAB VIEW ONLY) 84.51 mg/dL
== END 2025-07-03 10:02 | disposition home or self-care (01) ==
LOC: NCHCN 10:01
PROVIDERS: PCP Nurse Practitioner Family; Visit Provider Nurse Practitioner Family
DX: E11.9 Type 2 diabetes mellitus without complications (principal)
CPT/HCPCS: 82043; 82570

== ENCOUNTER 2025-08-28 01:29 | Outpatient (CLI) | payer MEDICAID, SELFPAY ==
--- NOTE | 2025-08-28 07:45 | DI.RAD_ITS ---
Exam(s) XR FOOT LT COMPLETE EXAM: XR FOOT LT COMPLETE CLINICAL HISTORY: Left foot pain M79.672. TECHNIQUE: 2D digital imaging was performed of the left foot. Three images were obtained. AP, oblique and lateral views were obtained. COMPARISON: No exams were available for comparison FINDINGS: BONES: No acute fracture is present. No bony destructive lesion is seen. There is a moderate-sized plantar calcaneal spur. There is a small enthesophyte at the posterior calcaneus. JOINTS: No dislocation present. Joint spaces are well maintained. SOFT TISSUE: Normal. IMPRESSION: Calcaneal spurs. DATA REPOSITORY: RADIATION DOSE DELIVERED:
== END 2025-08-28 01:49 ==
LOC: DI 01:29
PROVIDERS: PCP Nurse Practitioner Family; Visit Provider Podiatrist
DX: M79.672 Pain in left foot (principal); M77.32 Calcaneal spur, left foot
CPT/HCPCS: 73630